=== PATIENT | male | born 1970 | race Two or more races ===

== ENCOUNTER 2024-04-03 10:32 | Inpatient (IN) | payer MEDICAID ==
[~2024-04-03] VITALS: Ht 172.7 cm; Wt 79.8 kg
--- NOTE | 2024-04-03 10:52 | ED.PDOC ---
History of Present Illness HPI Comments 54 y.o male with PMH of ETOH abuse, presents to the ED for a chief complaint of generalized malaise associated with right sided abdominal/flank pain, scleral icterus and dry skin that started 15 days ago. Patient reports heavy drinking for the past 25 years, last drink was one week ago. Patient took 2x 325mg T ylenol 2 days ago for pain but had no relief. Patient denies any medical history and is not on any medication at this time. No allergies reported. Previous history of methamphetamine use, last use was 3 years ago. Time Seen by MD: 10:36 Reviewed Notes: Nurses Notes, Medications, Allergies Information Source: Patient Mode of Arrival: Ambulatory Severity: Moderate Timing: Days (15) Duration: Since onset Past Medical History PAST MEDICAL HISTORY: Denies Surgical History: Denies all surgeries Family History Family History: Reviewed,noncontributory to illness Social History Smoker: Non-Smoker Alcohol: Heavy Drugs: Denies Drug Use Lives In: Home Constitutional: reports: weakness; denies: chills, diaphoresis, fatigue, fever, malaise, sweats, others EENTM: denies: blurred vision, double vision, ear bleeding, ear discharge, ear drainage, ear pain, ear ringing, eye pain, eye redness, hearing loss, mouth pain, mouth swelling, nasal discharge, nose bleeding, nose congestion, nose pain, photophobia, tearing, throat pain, throat swelling, voice changes, others Respiratory: denies: cough, hemoptysis, orthopnea, SOB at rest, shortness of breath, SOB with excertion, stridor, wheezing, others Cardiovascular: denies: chest pain, dizzy spells, diaphoresis, Dyspnea on exertion, edema, irregular heart beat, left arm pain, lightheadedness, palpitations, PND, syncope, others Gastrointestinal: reports: abdominal pain; denies: abdomen distended, blood streaked bowels, constipated, diarrhea, dysphagia, difficulty swallowing, hematemesis, melena, nausea, poor appetite, poor fluid intake, rectal bleeding, rectal pain, vomiting, others Genitourinary: reports: flank pain; denies: burning, dysuria, frequency, hematuria, incontinence, penile discharge, penile sore, pain, testicle pain, testicle swelling, urgency, others Neurological: denies: dizziness, fainting, headache, left sided numbness, left sided weakness, numbness, paresthesia, pre-existing deficit, right sided numbness, right sided weakness, seizure, speech problems, tingling, tremors, weakness, others Integumetry: reports: change in color (jaundice ); denies: bruises, change in hair/nails, dryness, laceration, lesions, lumps, rash, wounds, others Allergic/Immunocompromised: denies: Difficulty Healing, Frequent Infections, Hives, Itching, others Hematologic/Lymphatic: denies: anemia, blood clots, easy bleeding, easy bruising, swollen glands, others Endocrine: denies: excessive hunger, excessive sweating, excessive thirst, excessive urination, flushing, intolerance to cold, intolerance to heat, unexplained weight gain, unexplained weight loss, others Psychiatric: denies: anxiety, bipolar disorder, depression, hopeless, panic disorder, schizophrenia, sleepless, suicidal, others All Other Systems: Reviewed and Negative Physical Exam General Appearance: Normal HEENT: Other (Scleritis) Neck: Full Range of Motion, Non-Tender, Normal, Normal Inspection Respiratory: Chest Non-Tender, Lungs Clear, No Accessory Muscle Use, No Respiratory Distress, Normal Breath Sounds Cardiovascular: No Edema, No JVD, No Murmur, No Gallop, Normal Peripheral Pulses, Regular Rate/Rhythm Breast Exam: Deferred Gastrointestinal: No Organomegaly, Non Tender, No Pulsatile Mass, Normal Bowel Sounds, Soft Genitalia: Deferred Pelvic: Deferred Rectal: Deferred Extremities: No calf tenderness, Normal capillary refill, Normal inspection, Normal range of motion, Non-tender, No pedal edema Musculoskeletal : Apperance: Normal Neurologic: Alert, distributor cleaner II-XII nml as Tested, No Motor Deficits, Normal Affect, Normal Mood, No Sensory Deficits Cerebellar Function: Normal Reflexes: Normal Skin: Jaundice, Other (no Spider Angioma or Caput medusae) Lymphatic: No Adenopathy Was a procedure done? Was a procedure done?: No Differential Dx Considerations may include: cirrhosis, viral hepatitis, acetaminophens toxicity, alcoholic liver injury, biliary disorders X-Ray, Labs, Meds, VS Vital Signs Date Time Temp Pulse Resp B/P (MAP) Pulse Ox O2 Delivery O2 Flow Rate FiO2 04/03/24 10:49 97.3 109 18 124/85 (98) 97 Lab Test 04/03/24 11:03 04/03/24 10:45 Range/Units White Blood Count 4.9 4.4-10.8 10^3/uL Red Blood Count 4.68 4.5-5.90 10^6/uL Hemoglobin 15.7 13.5-17.5 g/dL Hematocrit 45.9 41.0-53.0 % Mean Corpuscular Volume 98.1 80.0-100.0 fL Mean Corpuscular Hemoglobin 33.6 H 28.0-32.0 pg Mean Corpuscular Hemoglobin Concent 34.3 32.0-36.0 g/dL Red Cell Distribution Width 15.5 H 11.8-14.3 % Platelet Count 185 140-450 10^3/uL Mean Platelet Volume 9.7 6.9-10.8 fL Neutrophils (%) (Auto) 74.8 37.0-80.0 % Lymphocytes (%) (Auto) 13.8 10.0-50.0 % Monocytes (%) (Auto) 9.9 0.0-12.0 % Eosinophils (%) (Auto) 0.9 0.0-7.0 % Basophils (%) (Auto) 0.6 0.0-2.0 % Neutrophils # (Auto) 3.7 1.6-8.6 10 ^3/uL Lymphocytes # (Auto) 0.7 0.4-5.4 10 ^3/uL Monocytes # (Auto) 0.5 0-1.3 10 ^3/uL Eosinophils # (Auto) 0 0-0.8 10 ^3/uL Basophils # (Auto) 0 0-0.2 10 ^3/uL Nucleated Red Blood Cells 0.1 % Sodium Level 128 L 136-145 mmol/L Potassium Level 3.9 3.5-5.1 mmol/L Chloride Level 97 L 98-107 mmol/L Carbon Dioxide Level 22 20-31 mmol/L Anion Gap 9 5-15 Blood Urea Nitrogen 9 9-23 mg/dL Creatinine 0.70 0.700-1.30 mg/dL Glomerular Filtration Rate Calc 110 >90 mL/min BUN/Creatinine Ratio 12.9 10.0-20.0 Serum Glucose 357 H 74-106 mg/dL Calcium Level 8.9 8.7-10.4 mg/dL Total Bilirubin 12.3 H 0.2-1.0 mg/dL Aspartate Amino Transferase (AST) 1334 H 13-40 U/L Alanine Aminotransferase (ALT) 997 H 7-40 U/L Alkaline Phosphatase 188 H 46-116 U/L Total Protein 9.9 H 5.7-8.2 g/dL Albumin 3.5 3.2-4.8 g/dL Lipase 57 H 12-53 U/L Acetaminophen Level < 2.0 L 10.0-20.0 UG/ML Hepatitis A IgM Antibody Pending Hepatitis B Surface Antigen Pending Hepatitis B Core IgM Antibody Pending Hepatitis C Antibody Pending Urine Color Dark-yellow Yellow Urine Clarity Turbid H Clear Urine pH 6.0 5.0-9.0 Urine Specific [place] 1.041 H 1.001-1.035 Urine Protein 1+ H Negative Urine Ketones Negative Negative Urine Blood Negative Negative /uL Urine Nitrite Negative Negative Urine Bilirubin 2+ Negative Urine Urobilinogen 6 Negative mg/dL Urine Leukocyte Esterase Negative Negative /uL Urine RBC 2 0 - 3 /hpf Urine WBC 7 0 - 3 /hpf Urine Squamous Epithelial Cells None seen <5 /hpf Urine Bacteria None seen None Seen /hpf Urine Mucus Few None Seen Urine Glucose 4+ H Normal mg/dL [place] [id number] Ph: [phone] DIAGNOSTIC IMAGING Diagnostic Imaging Report : [id number] Signed PATIENT: NOEL RAMIREZ ACCT: [id number] UNIT: [id number] : 1970 LOC: ER ROOM / BED: / AGE / SEX: 54 / M ADM STATUS: REG ER SERVICE 1040 ORDERING PHYSICIAN: JUANIS JAFFE MD PROCEDURE(s): ABDL - ABDOMEN LIMITED REASON: JAUNDICE, RUQ PAIN ORDER NUMBER(s): [id number], ACCESSION NUMBER(s): [id number] INDICATION: JAUNDICE, RUQ PAIN TECHNIQUE: Multiple real-time sonographic images of the abdomen were obtained. COMPARISON: None FINDINGS: The liver is increased in echogenicity. The liver measures 16.7 cm. No intrahepatic biliary ductal dilatation is noted. Gallbladder is contracted. The gallbladder wall measures 0. 5 cm and is unremarkable. No gallstones or sludge is seen. The common duct is not visualized. No pericholecystic fluid is noted. There is a negative sonographic ramos's sign. The right kidney measures 10.7 cm. No hydronephrosis. The pancreas is not well visualized due to obscuration from bowel gas. The visualized portions of the IVC and aorta are grossly unremarkable. IMPRESSION: 1. Contracted gallbladder with gallbladder wall thickening which is nonspecific in the setting of underdistention. Negative sonographic ramos's sign. If there strong clinical concern for an acute process, MRI of the abdomen with MRCP, without and with intravenous contrast may be obtained. 2. Hepatic steatosis. ATED BY: JAN ABDUL MD DICTATED DATE/TIME: 04/03/24 113 SIGNED BY: JAN ABDUL MD SIGNED DATE/TIME: 04/03/241130 CC: Time of 1ST Reevaluation: 10:42 Reevaluation 1ST: Unchanged Time of 2ND Reevaluation: 15:44 Reevaluation 2ND: Unchanged Patient Education/Counseling: Diagnosis, Treatment, Prognosis Family Education/Counseling: No Family Present Additional Information Ordered Test: CBC, CMP Reviewed Result: LAB that includes: Lipase and acute hepatitis panel Interpreted results: US abdominal- Agreed with radiology- IMPRESSION: 1. Contracted gallbladder with gallbladder wall thickening which is nonspecific in the setting of underdistention. Negative sonographic ramos's sign. If there strong clinical concern for an acute process, MRI of the abdomen with MRCP, without and with intravenous contrast may be obtained. 2. Hepatic steatosis. 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 hepatitis panel is pending. pt will be admitted for further evaluation. tylenol level is absent. he has not drank in over 10 days and is not showing signs of withdrawal Departure 1 Departure Time of Disposition: 15:45 Impression: Primary Impression: Acute hepatitis Additional Impression: Alcoholism Disposition: ADMITTED INPATIENT Admit to: Med Surg Condition: Serious Critical Care Note Critical Care Time?: Yes (1 hr-critical care time only) Critical care comment: due to the likelihood of patients condition suddenly deteriorating, the care requires my highest level of attention, readiness to intervene. my critical care include assessing and reassessing of patient's condition, response to treatments, ordering the appropriate tests, reviewing the results, ordering of treatments, discussing the care with medical personnel and consultants, and formulating a treatment plan, as well a reviewing various medical records. this include at least 50% face-face interaction, and does not include any procedures Stability Stability form required: No I personally scribed for JUAINS JAFFE MD ([facility]) on 04/03/24 at 10:52. Electronically submitted by Anabelle Tolliver ([facility]). I personally scribed for JUANIS JAFFE MD ([facility]) on 04/03/24 at 12:53. Electronically submitted by Anabelle Tolliver ([facility]). JUANIS JAFFE MD Apr 03, 2024 10:52
[2024-04-03 10:59] LABS: Urine Bacteria None Seen /hpf (None Seen)
[2024-04-03 11:20] LABS: Urine Blood Negative /uL (Negative); Urine Clarity Turbid (Clear); Urine Color Dark-Yellow (Yellow); Urine Mucus FEW (None Seen); Urine Protein, UAD 1+ (Negative); Urine Specific Gravity 1.041 (1.001-1.035); Urine Urobilinogen 6 mg/dL (Negative); Urine WBC 7 /hpf (0 - 3)
--- NOTE | 2024-04-03 11:33 | DVH ---
INDICATION: JAUNDICE, RUQ PAIN TECHNIQUE: Multiple real-time sonographic images of the abdomen were obtained. COMPARISON: None FINDINGS: The liver is increased in echogenicity. The liver measures 16.7 cm. No intrahepatic biliar y ductal dilatation is noted. Gallbladder is contracted. The gallbladder wall measures 0. 5 cm and is unremarkable. No gallstones or sludge is seen. The common duct is not visualized. No pericholecystic fluid is noted. There is a negative sonographic ramos's sign. The right kidney measures 10.7 cm. No hydronephrosis. The pancreas is not well visualized due to obscuration from bowel gas. The visualized portions of the IVC and aorta are grossly unremarkable. IMPRESSION: 1. Contracted gallbladder with gallbladder wall thickening which is nonspecific in the setting of und erdistention. Negative sonographic ramos's sign. If there strong clinical concern for an acute proce ss, MRI of the abdomen with MRCP, without and with intravenous contrast may be obtained. 2. Hepatic steatosis.
[2024-04-03 11:37] LABS: Basophils # (auto) 0 10 ^3/uL (0-0.2); Basophils % (auto) 0.6 % (0.0-2.0); Eosinophils # (auto) 0 10 ^3/uL (0-0.8); Eosinophils % (auto) 0.9 % (0.0-7.0); Hematocrit 45.9 % (41.0-53.0); Hemoglobin 15.7 g/dL (13.5-17.5); Lymphocytes # (auto) 0.7 10 ^3/uL (0.4-5.4); Lymphocytes % (auto) 13.8 % (10.0-50.0); Mean Corpuscular Hemoglobin 33.6 pg (28.0-32.0); Mean Corpuscular Hgb Conc. 34.3 g/dL (32.0-36.0); Mean Corpuscular Volume 98.1 fL (80.0-100.0); Monocytes # (auto) 0.5 10 ^3/uL (0-1.3); Monocytes % (auto) 9.9 % (0.0-12.0); Neutrophils # (auto) 3.7 10 ^3/uL (1.6-8.6); Neutrophils % (auto) 74.8 % (37.0-80.0); Nucleated Red Blood Cells % 0.1 %; Platelet Count (auto) 185 10^3/uL (140-450); Red Blood Cells 4.68 10^6/uL (4.5-5.90); Red Cell Distribution Width 15.5 % (11.8-14.3); White Blood Cell 4.9 10^3/uL (4.4-10.8)
[2024-04-03 11:56] LABS: Albumin 3.5 g/dL (3.2-4.8); Anion Gap 9 (5-15); Blood Urea Nitrogen 9 mg/dL (9-23); Calcium 8.9 mg/dL (8.7-10.4); Carbon Dioxide 22 mmol/L (20-31); Potassium 3.9 mmol/L (3.5-5.1)
[2024-04-03 12:02] LABS: BUN/Creatinine Ratio 12.9 (10.0-20.0)
[2024-04-03 12:14] LABS: Alanine Aminotransferase 997 U/L (7-40); Alkaline Phosphatase 188 U/L (46-116); Aspartate Aminotransferase 1334 U/L (13-40); Bilirubin, Total 12.3 mg/dL (0.2-1.0); Chloride 97 mmol/L (98-107); Glucose 357 mg/dL (74-106); Lipase 57 U/L (12-53); Sodium 128 mmol/L (136-145); Total Protein 9.9 g/dL (5.7-8.2)
[2024-04-03] MEDS ORDERED: MORPHINE SULFATE INJ 2 MG/ml SYRG IV PRN (16:30)
[2024-04-03] MEDS ORDERED: DEXTROSE (50%) 50ML SYRG IV PRN ×2 (16:30→23:45)
[2024-04-03] MEDS: ACCU-CHEK COMFORT CURVE STRIP VI SCH (17:00)
[2024-04-03] MEDS: InsuLIN REG 1unit/0.01ml Soln (100units/ml) SC SCH (17:00)
--- NOTE | 2024-04-03 17:17 | DVHHP2 ---
History of Present Illness History of Present Illness 54 y.o male with PMH of ETOH abuse, meth abuse, presents to the ED for a chief complaint of generalized malaise. Patient endorsed right sided abdominal/flank pain to ED physician. He endorses scleral icterus and dry skin that started 15 days ago. Patient reports heavy drinking for the past 25 years, last drink was one week ago, he drinks 12 pack beer daily and has no history of alcohol withdrawals. Patient took 625 Tylenol for 2 days few days ago as a sleep aid but had no relief. Denies any limb weakness, vision changes. Denies any travel or any recent bug bites. Denies fevers/chills, nausea/vomiting, diarrhea. Denies cough, upper respiratory symptoms, urinary symptoms. Denies any rash. Patient denies any medical history and is not on any medication at this time. No al lergies reported. No IV drug use, current alcohol abuse, history of meth abuse. Review of Systems Review of Systems As in HPI Allergies: Coded Allergies: NO KNOWN ALLERGIES (Unverified , 04/03/24) Medications Current Medications Medications Dose Ordered Sig/Zbigniew Route Start Time Stop Time Status Last Admin Dose Admin Diagnostic Test (Pha) 1 strip ACHS 04/03/24 17:00 UNV Insulin Human Regular ACHS SC 04/03/24 17:00 UNV Dextrose 50 ml UD PRN IV 04/03/24 16:30 UNV Enoxaparin Sodium 40 mg DAILY SC 04/04/24 10:00 UNV Morphine Sulfate 2 mg Q4HPRN PRN IV 04/03/24 16:30 UNV Exam Vital Signs Vital Signs Date Time Temp Pulse Resp B/P (MAP) Pulse Ox O2 Delivery O2 Flow Rate FiO2 04/03/24 10:49 97.3 109 18 124/85 (98) 97 Exam GEN: NAD. Jaundiced HEENT: NC/AT; , find mucous membranes, scleral icterus, sublingual icterus, jaundice skin CV: RRR, no m/r/g. LUNGS: Poor air movement in all lung hodges. ABD: Soft, NT/ND, NBS, no masses or organomegaly. No abdominal tenderness, Gibbs sign negative, abdomen nonacute EXT: skin Warm, well perfused. no rashes. Skin is jaundiced, no spider angiomas, NEURO: Ambulating with no limitations. No focal deficits. Labs/Xrays Labs Test 04/03/24 11:03 04/03/24 10:45 Range/Units White Blood Count 4.9 4.4-10.8 10^3/uL Red Blood Count 4.68 4.5-5.90 10^6/uL Hemoglobin 15.7 13.5-17.5 g/dL Hematocrit 45.9 41.0-53.0 % Mean Corpuscular Volume 98.1 80.0-100.0 fL Mean Corpuscular Hemoglobin 33.6 H 28.0-32.0 pg Mean Corpuscular Hemoglobin Concent 34.3 32.0-36.0 g/dL Red Cell Distribution Width 15.5 H 11.8-14.3 % Platelet Count 185 140-450 10^3/uL Mean Platelet Volume 9.7 6.9-10.8 fL Neutrophils (%) (Auto) 74.8 37.0-80.0 % Lymphocytes (%) (Auto) 13.8 10.0-50.0 % Monocytes (%) (Auto) 9.9 0.0-12.0 % Eosinophils (%) (Auto) 0.9 0.0-7.0 % Basophils (%) (Auto) 0.6 0.0-2.0 % Neutrophils # (Auto) 3.7 1.6-8.6 10 ^3/uL Lymphocytes # (Auto) 0.7 0.4-5.4 10 ^3/uL Monocytes # (Auto) 0.5 0-1.3 10 ^3/uL Eosinophils # (Auto) 0 0-0.8 10 ^3/uL Basophils # (Auto) 0 0-0.2 10 ^3/uL Nucleated Red Blood Cells 0.1 % Sodium Level 128 L 136-145 mmol/L Potassium Level 3.9 3.5-5.1 mmol/L Chloride Level 97 L 98-107 mmol/L Carbon Dioxide Level 22 20-31 mmol/L Anion Gap 9 5-15 Blood Urea Nitrogen 9 9-23 mg/dL Creatinine 0.70 0.700-1.30 mg/dL Glomerular Filtration Rate Calc 110 >90 mL/min BUN/Creatinine Ratio 12.9 10.0-20.0 Serum Glucose 357 H 74-106 mg/dL Calcium Level 8.9 8.7-10.4 mg/dL Total Bilirubin 12.3 H 0.2-1.0 mg/dL Aspartate Amino Transferase (AST) 1334 H 13-40 U/L Alanine Aminotransferase (ALT) 997 H 7-40 U/L Alkaline Phosphatase 188 H 46-116 U/L Lactate Dehydrogenase 471 H 120-246 U/L Total Protein 9.9 H 5.7-8.2 g/dL Albumin 3.5 3.2-4.8 g/dL Lipase 57 H 12-53 U/L Acetaminophen Level < 2.0 L 10.0-20.0 UG/ML Urine Color Dark-yellow Yellow Urine Clarity Turbid H Clear Urine pH 6.0 5.0-9.0 Urine Specific [place] 1.041 H 1.001-1.035 Urine Protein 1+ H Negative Urine Ketones Negative Negative Urine Blood Negative Negative /uL Urine Nitrite Negative Negative Urine Bilirubin 2+ Negative Urine Urobilinogen 6 Negative mg/dL Urine Leukocyte Esterase Negative Negative /uL Urine RBC 2 0 - 3 /hpf Urine WBC 7 0 - 3 /hpf Urine Squamous Epithelial Cells None seen <5 /hpf Urine Bacteria None seen None Seen /hpf Urine Mucus Few None Seen Urine Glucose 4+ H Normal mg/dL Assessment/Plan Assessment/Plan #Transaminitis #ALP elevated #Hyperbilirubinemia #Hepatomegaly/hepatic steatosis #History of alcohol abuse - patient here for weakness. Has history of alcohol abuse drinking 12 pack be ers daily. - patient has AST more than ALT, elevations in low 1000s, ALP elevated. - lipase elevated 57, Tylenol level low. - MELD-Na 27, , ammonia wnl, - blod etoh neg - low conern for acute etoh liver failure (no need prednisolone) - Dbili 8 (of), LDH high- could be hemolysis (pending hapto) - CT abd without ascites , no Hepatosplenomegaly, no acute process - RUQ ultrasound shows hepatomegaly and hepatic steatosis. - if LFT keep rising (with normal Hep panel) and given etoh wnl - may need MRCP with GI consult . - pending hepatitis panel, - need smear pend. - avoid Tylenol for pain control - low-salt diet #Protein gap - no hypercalcemia noted, renal function normal,-low concern for myeloma but if persists we will need workup for paraproteinemia diseases - monitor protein gap #Hyponatremia #Hyperglycemia - gap is normal, hyponatremia likely from hyperglycemia.. DKA ruled out. - giving fluids - start of moderate q4h scale #Intravascular volume depletion Specific gravity 1.041. Blood glucose 357. She was likely suffering from osmotic diuresis. -IV fluid hydration aggressive. Diet low-salt DVT prophylaxis Lovenox GI prophylaxis patient tolerating diet Med tele Plan discussed with: Patient My Orders Orders - KESHIA VAZQUEZ MD Procedure Category Date Status Time Blood Alcohol LAB 04/03/24 Logged 16:11 Gamma Glutamyl LAB 04/03/24 In Process Transpeptidase 16:16 Bilirubin, Direct LAB 04/03/24 In Process 16:16 Haptoglobin LAB 04/03/24 Logged 16:16 Hemoglobin A1c LAB 04/03/24 In Process 16:20 Glucose Blood PHA 04/03/24 Logged (Accu-Chek Comfort 17:00 Insulin R (Human) PHA 04/03/24 Logged (Insulin R) 17:00 Dextrose 50% Syringe PHA 04/03/24 Logged 16:30 Admit ADMIT 04/03/24 Transmitted 16:23 Code Status CODE 04/03/24 Transmitted 16:23 2 Gm Sodium Diet DIET 04/03/24 Transmitted Dinner Enoxaparin Sodium PHA 04/04/24 Logged (Lovenox) 10:00 Complete Blood Count LAB 04/04/24 Verified 04:00 Comprehensive LAB 04/04/24 Verified Metabolic Panel 04:00 Bedrest With Bathroom AARTI 04/03/24 In Process Privileg 16:23 Morphine Sulfate PHA 04/03/24 Logged Injection 16:30 Ammonia LAB 04/03/24 Logged 16:23 Insulin Lispro PHA 04/03/24 Logged (Human) (Humalog) 16:30 Lactated Ringer's PHA 04/03/24 Logged 16:30 Chest Portable XY 04/03/24 Transmitted 16:51 Ct Ab Pel Wo Con-No CT 04/03/24 Transmitted Oral Or Iv 16:51 Drug Screen LAB 04/03/24 Verified 16:56 Date of Service: Apr 03, 2024 Billing Provider: KESHIA VAZQUEZ MD Common Visit Codes: [id number] INP/OBS CARE (HIGH) KESHIA VAZQUEZ MD Apr 03, 2024 17:17
--- NOTE | 2024-04-03 17:26 | DVH ---
EXAMINATION: AP portable chest radiograph CLINICAL HISTORY: distant breath sounds COMPARISON: None TECHNIQUE: Single view of the chest FINDINGS: Negative AP chest. No dominant consolidations. The costophrenic angles are clear. No sizable pleural effusions or pneumo thorax identified. The cardiomediastinal silhouette appears within normal limits given technique. IMPRESSION: 1. Negative AP chest.
--- NOTE | 2024-04-03 17:38 | DVH ---
Exam: CT CT AB PEL WO CON-NO ORAL OR IV History: liver failure. check for bile duct, ascites, varices. Comparison Study: None available at time of dictation. TECHNIQUE: Multidetector CT of the abdomen was performed from lung bases to pubic symphysis. Imaging was performed without IV contrast. Axial, coronal and sagittal multiplanar reformats were obtained fr om the axial data set by the technologist. Radiation Dose Information: CT Dose: CTDI volume is 18.64 mGy. Dose-length product is 967.03 mGy*cm Varices are best evaluated with IV contrast. FINDINGS: Evaluation of solid organs is limited due to lack of intravenous contrast use. Findings: Lung Bases: No acute or significant lung base finding. Normal heart size. No pleural or pericardial effusion. Liver: The liver is normal in size. No focal lesions. Gallbladder and Biliary Tree: Gallbladder contracted with mild gallbladder wall thickening and perich olecystic fluid if acute cholecystitis is of clinical concern recommend gallbladder ultrasound. Spleen: Unremarkable Pancreas: The pancreas is grossly normal in appearance. Adrenal Glands: Unremarkable Kidneys: Kidneys are grossly normal without calculi or hydronephrosis. Bladder: Grossly unremarkable for degree of distention. Bowel: The stomach is grossly normal in appearance. Small bowel and colon are normal in caliber and d istribution. The appendix is not visualized; however, no secondary findings of acute appendicitis id entified. Ascites: Absent Lymphadenopathy: No mesenteric, retroperitoneal or periportal lymphadenopathy. Abdominal Wall and Mesentery: Unremarkable. Vasculature: The visualized abdominal aorta is normal in size and caliber. Evaluation of abdominal a nd pelvic vessels is limited due to lack of intravenous contrast. Pelvic Organs: Unremarkable Musculoskeletal: No aggressive focal bony lesions, acute fractures or dislocation. Soft tissues: Unremarkable IMPRESSION: 1. No findings to suggest dilated intrahepatic ducts. 2. No gross findings of varices however IV contrast makes varices evaluation more accurate. 3. Gallbladder is contracted with mildly thickened wall and pericholecystic fluid. If of clinical con cern recommend gallbladder ultrasound. 4. No findings of bowel obstruction. 5. Stool noted throughout the colon. Radiation optimization: All CT scans at this facility use at least one of these dose optimization te chniques: automated exposure control mA and/or kV adjustment per patient size (includes targeted exa ms where dose is matched to clinical indication) or iterative reconstruction.
[2024-04-03 19:21] LABS: INR 1.59 (0.9-1.15); Prothrombin Time 16.3 sec (9.3-11.8)
[2024-04-03 20:33] VITALS: PULSE 91; RESP 18; O2SAT 96
[2024-04-03] MEDS: INSULIN LISPRO (HUMAN) 100 UNITS/ML ML SC ONE (21:36)
[2024-04-03] MEDS: LACTATED RINGER'S 1,000 ML IV ONE (21:40)
[2024-04-03 23:04] VITALS: PULSE 90; RESP 16; O2SAT 97
[2024-04-04] VITALS (9 sets, daily range): BP systolic 111–132; BP diastolic 77–87; PULSE 71–88; RESP 16–22; TEMP 98.1–98.9; O2SAT 96–100
[2024-04-04] MEDS: INSULIN LISPRO (HUMAN) 100 UNITS/ML ML SC ONE
[2024-04-04] MEDS: InsuLIN REG 1unit/0.01ml Soln (100units/ml) SC SCH (00:55)
[2024-04-04] MEDS: ACCU-CHEK COMFORT CURVE STRIP VI SCH (00:55)
[2024-04-04] MEDS: LACTATED RINGER'S 1,000 ML IV ONE (00:56)
[2024-04-04 06:09] LABS: Basophils # (auto) 0 10 ^3/uL (0-0.2); Basophils % (auto) 0.6 % (0.0-2.0); Eosinophils # (auto) 0 10 ^3/uL (0-0.8); Hematocrit 40.2 % (41.0-53.0); Hemoglobin 13.9 g/dL (13.5-17.5); Lymphocytes # (auto) 0.7 10 ^3/uL (0.4-5.4); Lymphocytes % (auto) 16.7 % (10.0-50.0); Mean Corpuscular Hemoglobin 33.7 pg (28.0-32.0); Mean Corpuscular Hgb Conc. 34.5 g/dL (32.0-36.0); Mean Corpuscular Volume 97.6 fL (80.0-100.0); Monocytes # (auto) 0.5 10 ^3/uL (0-1.3); Monocytes % (auto) 12.7 % (0.0-12.0); Neutrophils # (auto) 2.8 10 ^3/uL (1.6-8.6); Nucleated Red Blood Cells % 0.2 %; Platelet Count (auto) 157 10^3/uL (140-450); Red Blood Cells 4.12 10^6/uL (4.5-5.90); Red Cell Distribution Width 15.4 % (11.8-14.3); White Blood Cell 4.1 10^3/uL (4.4-10.8)
[2024-04-04 06:31] LABS: Anion Gap 8 (5-15); BUN/Creatinine Ratio 13.3 (10.0-20.0); Carbon Dioxide 22 mmol/L (20-31); Chloride 103 mmol/L (98-107); Potassium 3.6 mmol/L (3.5-5.1); Total Protein 8.1 g/dL (5.7-8.2)
[2024-04-04 06:38] LABS: Alanine Aminotransferase 908 U/L (7-40); Albumin 2.8 g/dL (3.2-4.8); Alkaline Phosphatase 169 U/L (46-116); Bilirubin, Total 9.2 mg/dL (0.2-1.0); Blood Urea Nitrogen 8 mg/dL (9-23); Calcium 8.5 mg/dL (8.7-10.4); Glucose 153 mg/dL (74-106); Sodium 133 mmol/L (136-145)
[2024-04-04 06:43] LABS: Aspartate Aminotransferase 1196 U/L (13-40)
[2024-04-04 08:25] LABS: Wright Stain Ready for Review
[2024-04-04] MEDS: ENOXAPARIN SOD 40 MG/0.4 ML SYRINGE SC SCH (10:28)
[2024-04-04 16:13] LABS: Cannabinoid Screen, Urine Neg (NEGATIVE)
[2024-04-04 16:14] LABS: Opiate Scree,Urine Neg (NEGATIVE)
[2024-04-04 16:15] LABS: Amphetamine Screen, Urine Neg (NEGATIVE); Barbiturate Scree,Urine Neg (NEGATIVE); Benzodiazephine Screen, Urine Neg (NEGATIVE); Cocaine Screen, Urine Neg (NEGATIVE); Phencyclidine Screen, Urine Neg (NEGATIVE)
--- NOTE | 2024-04-04 17:14 | DVHPN2 ---
Subjective FEELS BETTER. NO ABDOMINAL PAIN Reviewed: Care Plan, H&P, Labs, Medications, Previous Orders, Radiology Changes from previous H/P or p: No Changes Objective Vitals Vital Signs Date Time Temp Pulse Resp B/P (MAP) Pulse Ox O2 Delivery O2 Flow Rate FiO2 04/04/24 13:00 98.1 82 16 119/78 (92) 96 98.1 04/04/24 08:07 Room Air* 0 21 Intake/Output Intake and Output 04/04/24 07:00 Intake Total 1750 ml Output Total 0 ml Balance 1750 ml Intake Oral 0 ml IV Total 1750 ml Output Urine Total 0 ml General Appearance: Alert, Oriented X3, Cooperative, No acute distress HEENT: Atraumatic Lungs: Clear to auscultation Cardiovascular: Regular rate, Other (Soft heart murmur in the left lower sternal border and apex) Abdomen: Normal bowel sounds, Soft, No tenderness Medications Current Medications Medications Dose Ordered Sig/Zbigniew Route Start Time Stop Time Status Last Admin Dose Admin Enoxaparin Sodium 40 mg DAILY SC 04/04/24 10:00 04/04/24 10:28 40 MG Morphine Sulfate 2 mg Q4HPRN PRN IV 04/03/24 16:30 Diagnostic Test (Pha) 1 strip IQ4HR 04/04/24 00:00 04/04/24 15:52 1 STRIP Insulin Human Regular IQ4HR SC 04/04/24 00:00 04/04/24 15:55 6 UNITS Dextrose 50 ml UD PRN IV 04/03/24 23:45 Laboratory Results Laboratory Tests 04/04/24 05:31 Chemistry Test 04/04/24 05:31 Albumin 2.8 g/dL (3.2-4.8) L Calcium Level 8.5 mg/dL (8.7-10.4) L Total Protein 8.1 g/dL (5.7-8.2) Coagulation Test 04/03/24 18:23 Prothrombin Time 16.3 sec (9.3-11.8) H Prothrombin Time INR 1.59 (0.9-1.15) H LFT Test 04/04/24 05:31 Alanine Aminotransferase (ALT) 908 U/L (7-40) H Alkaline Phosphatase 169 U/L (46-116) H Aspartate Amino Transferase (AST) 1196 U/L (13-40) H Total Bilirubin 9.2 mg/dL (0.2-1.0) H Urinalysis Test 04/03/24 10:45 Urine Color Dark-yellow (Yellow) Urine Clarity Turbid (Clear) H Urine pH 6.0 (5.0-9.0) Urine Specific [place] 1.041 (1.001-1.035) Urine Protein 1+ (Negative) H Urine Ketones Negative (Negative) Urine Blood Negative /uL (Negative) Urine Nitrite Negative (Negative) Urine Bilirubin 2+ (Negative) Urine Urobilinogen 6 mg/dL (Negative) Urine Leukocyte Esterase Negative /uL (Negative) Urine RBC 2 /hpf (0 - 3) Urine WBC 7 /hpf (0 - 3) Urine Squamous Epithelial Cells None seen /hpf (<5) Urine Bacteria None seen /hpf (None Seen) Urine Mucus Few (None Seen) Urine Glucose 4+ mg/dL (Normal) H Assessment/Plan Assessment/Plan Alcoholic liver disease Coagulopathy Dyslipidemia New diabetes with A1c 11 Hyponatremia Leukopenia Plan: Continue current plan of care. Repeat INR. Check CPK. CBC and CMP. We will order MRCP. Further plan per orders Plan discussed with: Patient, Spouse My Orders Orders - KATHY ALLEN MD Procedure Category Date Status Time Mrcp Mri MRI 04/04/24 Logged 14:39 Complete Blood Count LAB 04/05/24 Verified 06:00 Comprehensive LAB 04/05/24 Verified Metabolic Panel 06:00 Creatine Kinase LAB 04/05/24 Verified 06:00 Prothrombin Time W/ LAB 04/05/24 Verified INR 06:00 Date of Service: Apr 04, 2024 Billing Provider: KATHY ALLEN MD Common Visit Codes: [id number] INP/OBS CARE(HIGH) KATHY ALLEN MD Apr 04, 2024 17:14
[2024-04-05] VITALS (7 sets, daily range): BP systolic 116–132; BP diastolic 65–84; PULSE 68–98; RESP 17–20; TEMP 97.9–98.5; O2SAT 94–100
[2024-04-05 06:58] LABS: Basophils # (auto) 0 10 ^3/uL (0-0.2); Basophils % (auto) 0.6 % (0.0-2.0); Eosinophils # (auto) 0.1 10 ^3/uL (0-0.8); Hemoglobin 14.7 g/dL (13.5-17.5); Lymphocytes # (auto) 1.2 10 ^3/uL (0.4-5.4); Monocytes # (auto) 0.6 10 ^3/uL (0-1.3); Nucleated Red Blood Cells % 0.2 %; Red Cell Distribution Width 15.6 % (11.8-14.3)
[2024-04-05 07:01] LABS: Eosinophils % (auto) 1.1 % (0.0-7.0); Hematocrit 41.3 % (41.0-53.0); Lymphocytes % (auto) 22.5 % (10.0-50.0); Mean Corpuscular Hemoglobin 34.4 pg (28.0-32.0); Mean Corpuscular Hgb Conc. 35.5 g/dL (32.0-36.0); Monocytes % (auto) 11.8 % (0.0-12.0); Neutrophils # (auto) 3.5 10 ^3/uL (1.6-8.6); Platelet Count (auto) 185 10^3/uL (140-450); Red Blood Cells 4.26 10^6/uL (4.5-5.90); White Blood Cell 5.5 10^3/uL (4.4-10.8)
[2024-04-05 07:05] LABS: INR 1.63 (0.9-1.15); Prothrombin Time 16.7 sec (9.3-11.8)
[2024-04-05 08:11] LABS: Anion Gap 7 (5-15)
[2024-04-05 08:16] LABS: BUN/Creatinine Ratio 11.3 (10.0-20.0)
[2024-04-05 08:22] LABS: Alanine Aminotransferase 1164 U/L (7-40); Alkaline Phosphatase 161 U/L (46-116); Aspartate Aminotransferase 1473 U/L (13-40); Bilirubin, Total 9.7 mg/dL (0.2-1.0); Blood Urea Nitrogen 7 mg/dL (9-23); Calcium 8.6 mg/dL (8.7-10.4); Carbon Dioxide 22 mmol/L (20-31); Chloride 103 mmol/L (98-107); Glucose 125 mg/dL (74-106); Potassium 3.7 mmol/L (3.5-5.1); Sodium 132 mmol/L (136-145)
[2024-04-05 08:23] LABS: Albumin 2.9 g/dL (3.2-4.8); Creatine Kinase IFCC 31 U/L (46-171); Total Protein 8.9 g/dL (5.7-8.2)
--- NOTE | 2024-04-05 10:59 | DVH ---
CLINICAL INFORMATION: Cholecystectomy. TECHNIQUE: Multisequence multiplanar MRI images of the abdomen were obtained without IV contrast. Mark storey T2-weighted MRCP images were obtained. 3D MRCP images were created. COMPARISON: CT dated 04/03/2024. Ultrasound dated 04/03/2024. FINDINGS: No gallstones visualized in the gallbladder. Trace pericholecystic fluid. No biliary ducta l dilatation. Common bile duct measures up to 4 mm in diameter, within normal limits. No filling defe ct or stricture identified in the common bile duct on MRCP. Pancreatic duct is unremarkable. The live r, spleen, pancreas, and adrenal glands appear unremarkable in their limited noncontrast enhanced giovanni earance. Small T2 hyperintense lesions in the lower pole of the left kidney , likely cysts. Possible tiny cyst in the inferior pole of the right kidney . No abdominal aortic aneurysm. No other significa nt abnormality identified. IMPRESSION: 1. No biliary ductal dilatation. No evidence of common bile duct obstruction. 2. Nonspecific trace pericholecystic fluid. No gallstones. Correlate with clinical findings. 3. Additional findings as described above.
[2024-04-05] MEDS: SODIUM CHLORIDE 0.9% 1,000 ML IV SCH (12:15)
--- NOTE | 2024-04-05 17:12 | DVHPN2 ---
Subjective FEELS BETTER. NO ABDOMINAL PAIN Reviewed: Care Plan, H&P, Labs, Medications, Previous Orders, Radiology Changes from previous H/P or p: No Changes Objective Vitals Vital Signs Date Time Temp Pulse Resp B/P (MAP) Pulse Ox O2 Delivery O2 Flow Rate FiO2 04/05/24 13:00 98.5 91 17 132/81 (98) 97 98.5 04/05/24 08:06 Room Air* 0 21 Intake/Output Intake and Output 04/05/24 07:00 Intake Total 2450 ml Output Total 450 ml Balance 2000 ml Intake Oral 2450 ml Output Urine Total 450 ml # Voids 4 # Bowel Movements 1 General Appearance: Alert, Oriented X3, Cooperative, No acute distress HEENT: Atraumatic Lungs: Clear to auscultation Cardiovascular: Regular rate, Other (Soft murmur in the left lower sternal border and apex) Abdomen: Normal bowel sounds, Soft, No tenderness Medications Current Medications Medications Dose Ordered Sig/Zbigniew Route Start Time Stop Time Status Last Admin Dose Admin Morphine Sulfate 2 mg Q4HPRN PRN IV 04/03/24 16:30 Diagnostic Test (Pha) 1 strip IQ4HR 04/04/24 00:00 04/05/24 15:51 1 STRIP Insulin Human Regular IQ4HR SC 04/04/24 00:00 04/05/24 15:52 9 UNITS Dextrose 50 ml UD PRN IV 04/03/24 23:45 Sodium Chloride 1,000 ml @ 75 mls/hr [id number] IV 04/05/24 12:15 04/05/24 12:15 75 MLS/HR Laboratory Results Laboratory Tests 04/05/24 06:12 Chemistry Test 04/05/24 06:12 Albumin 2.9 g/dL (3.2-4.8) L Calcium Level 8.6 mg/dL (8.7-10.4) L Total Protein 8.9 g/dL (5.7-8.2) H Coagulation Test 04/05/24 06:12 Prothrombin Time 16.7 sec (9.3-11.8) H Prothrombin Time INR 1.63 (0.9-1.15) H LFT Test 04/05/24 06:12 Alanine Aminotransferase (ALT) 1164 U/L (7-40) H Alkaline Phosphatase 161 U/L (46-116) H Aspartate Amino Transferase (AST) 1473 U/L (13-40) H Total Bilirubin 9.7 mg/dL (0.2-1.0) H Urinalysis Test 04/03/24 10:45 Urine Color Dark-yellow (Yellow) Urine Clarity Turbid (Clear) H Urine pH 6.0 (5.0-9.0) Urine Specific [place] 1.041 (1.001-1.035) Urine Protein 1+ (Negative) H Urine Ketones Negative (Negative) Urine Blood Negative /uL (Negative) Urine Nitrite Negative (Negative) Urine Bilirubin 2+ (Negative) Urine Urobilinogen 6 mg/dL (Negative) Urine Leukocyte Esterase Negative /uL (Negative) Urine RBC 2 /hpf (0 - 3) Urine WBC 7 /hpf (0 - 3) Urine Squamous Epithelial Cells None seen /hpf (<5) Urine Bacteria None seen /hpf (None Seen) Urine Mucus Few (None Seen) Urine Glucose 4+ mg/dL (Normal) H Assessment/Plan Assessment/Plan Worsening liver function tests Alcoholic liver disease Coagulopathy Dyslipidemia New diabetes with A1c 11 Hyponatremia Leukopenia Heart murmur of unclear etiology at this point Plan: Echocardiogram. Normal saline. Repeat liver function tests. Further plan per orders Plan discussed with: Patient My Orders Orders - KATHY ALLEN MD Procedure Category Date Status Time Sodium Chloride 0.9% PHA 04/05/24 In Process 12:15 Date of Service: Apr 05, 2024 Billing Provider: KATHY ALLEN MD Common Visit Codes: [id number] INP/OBS CARE(HIGH) KATHY ALLEN MD Apr 05, 2024 17:12
[2024-04-06] VITALS (7 sets, daily range): BP systolic 119–128; BP diastolic 77–87; PULSE 81–96; RESP 18–20; TEMP 98.1–98.9; O2SAT 97–99
[2024-04-06 07:28] LABS: Anion Gap 7 (5-15)
[2024-04-06 07:33] LABS: BUN/Creatinine Ratio 11.3 (10.0-20.0)
[2024-04-06 07:36] LABS: Sodium 133 mmol/L (136-145)
[2024-04-06 07:37] LABS: Alanine Aminotransferase 998 U/L (7-40); Albumin 2.7 g/dL (3.2-4.8); Alkaline Phosphatase 163 U/L (46-116); Aspartate Aminotransferase 1350 U/L (13-40); Blood Urea Nitrogen 7 mg/dL (9-23); Calcium 8.4 mg/dL (8.7-10.4); Carbon Dioxide 21 mmol/L (20-31); Chloride 105 mmol/L (98-107); Glucose 122 mg/dL (74-106); Potassium 3.8 mmol/L (3.5-5.1); Total Protein 8.5 g/dL (5.7-8.2)
[2024-04-06 08:19] LABS: Erythrocyte Sedimentation Rate 44 mm/hr (0-20)
--- NOTE | 2024-04-06 10:17 | DVHPN2 ---
Subjective update - 04/06--patient is feeling improved, much better. Weakness is resolved, he was ambulating, he is tolerating p.o. the symptoms were likely 2/2 hyperglycemia. etoh neg on admit, MRCP neg. pending echo, hepatits panel and GI eval. 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 likely dc today versus tomorrow pending GI eval which likely just needs outpatient follow-up. needs to stop further etoh. no acute etoh intox, hence this is likely not acute etoh DETENTION (ie dont need prednisolone). Reviewed: Care Plan, H&P, Labs, Medications, Previous Orders, Radiology Changes from previous H/P or p: No Changes General: Per HPI Objective Vitals Vital Signs Date Time Temp Pulse Resp B/P (MAP) Pulse Ox O2 Delivery O2 Flow Rate FiO2 04/06/24 08:12 Room Air* 0 21 04/06/24 05:00 98.1 84 20 123/84 (97) 98 98.1 Intake/Output Intake and Output 04/06/24 07:00 Intake Total 3010 ml Balance 3010 ml Intake Oral 2560 ml IV Total 450 ml # Voids 8 # Bowel Movements 3 Exam GEN: NAD. Jaundiced HEENT: NC/AT; ,moist mucous membranes, scleral icterus, sublingual icterus, jaundice skin CV: RRR, no m/r/g. LUNGS: Poor air movement in all lung hodges. ABD: Soft, NT/ND, NBS, no masses or organomegaly. No abdominal tenderness, Gibbs sign negative, abdomen nonacute EXT: skin Warm, well perfused. no rashes. Skin is jaundiced, no spider angiomas, NEURO: Ambulating with no limitations. No focal deficits. General Appearance: Alert, Oriented X3, Cooperative, No acute distress HEENT: Atraumatic Lungs: Clear to auscultation Cardiovascular: Regular rate, Other (Soft heart murmur in the left lower sternal border and apex) Abdomen: Normal bowel sounds, Soft, No tenderness Medications Current Medications Medications Dose Ordered Sig/Zbigniew Route Start Time Stop Time Status Last Admin Dose Admin Morphine Sulfate 2 mg Q4HPRN PRN IV 04/03/24 16:30 Diagnostic Test (Pha) 1 strip IQ4HR 04/04/24 00:00 04/06/24 07:42 1 STRIP Insulin Human Regular IQ4HR SC 04/04/24 00:00 04/06/24 07:48 2 UNITS Dextrose 50 ml UD PRN IV 04/03/24 23:45 Sodium Chloride 1,000 ml @ 75 mls/hr [id number] IV 04/05/24 12:15 04/06/24 02:15 75 MLS/HR Laboratory Results Laboratory Tests 04/05/24 06:12 04/06/24 06:14 Chemistry Test 04/06/24 06:14 Albumin 2.7 g/dL (3.2-4.8) L Calcium Level 8.4 mg/dL (8.7-10.4) L Total Protein 8.5 g/dL (5.7-8.2) H LFT Test 04/06/24 06:14 Alanine Aminotransferase (ALT) 998 U/L (7-40) H Alkaline Phosphatase 163 U/L (46-116) H Aspartate Amino Transferase (AST) 1350 U/L (13-40) H Total Bilirubin 9.0 mg/dL (0.2-1.0) H Urinalysis Test 04/03/24 10:45 Urine Color Dark-yellow (Yellow) Urine Clarity Turbid (Clear) H Urine pH 6.0 (5.0-9.0) Urine Specific [place] 1.041 (1.001-1.035) Urine Protein 1+ (Negative) H Urine Ketones Negative (Negative) Urine Blood Negative /uL (Negative) Urine Nitrite Negative (Negative) Urine Bilirubin 2+ (Negative) Urine Urobilinogen 6 mg/dL (Negative) Urine Leukocyte Esterase Negative /uL (Negative) Urine RBC 2 /hpf (0 - 3) Urine WBC 7 /hpf (0 - 3) Urine Squamous Epithelial Cells None seen /hpf (<5) Urine Bacteria None seen /hpf (None Seen) Urine Mucus Few (None Seen) Urine Glucose 4+ mg/dL (Normal) H Labs and/or images reviewed: Labs reviewed by me, Image(s) reviewed by me Assessment/Plan Assessment/Plan update - 04/06--patient is feeling improved, much better. Weakness is resolved, he was ambulating, he is tolerating p.o. the symptoms were likely 2/2 hyperglycemia. etoh neg on admit, MRCP neg. pending echo, hepatits panel and GI eval. 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 likely dc today versus tomorrow pending GI eval which likely just needs outpatient follow-up. needs to stop further etoh. no acute etoh intox, hence this is likely not acute etoh DETENTION (ie dont need prednisolone). #Transaminitis #ALP elevated #Hyperbilirubinemia #Hepatomegaly/hepatic steatosis #History of alcohol abuse - patient here for weakness. Has history of alcohol abuse drinking 12 pack beers daily. - patient has AST more than ALT, elevations in low 1000s, ALP elevated. - lipase elevated 57, Tylenol level low. - MELD-Na 27, , ammonia wnl, - blod etoh neg - low conern for acute etoh liver failure (no need prednisolone) - Dbili 8 (), LDH high- could be hemolysis (pending hapto) - CT abd without ascites , no Hepatosplenomegaly, no acute process - RUQ ultrasound shows hepatomegaly and hepatic steatosis. - uds neg - MRCP neg. - GI consult pend. likely chronic etoh cirrhosis - pending hepatitis panel, - need smear pend. - avoid Tylenol for pain control - low-salt diet - pending echo, hepatits panel and GI eval. #Protein gap - no hypercalcemia noted, renal function normal,-low concern for myeloma but if persists we will need workup for paraproteinemia diseases - monitor protein gap. protein gap remains elevated. will need workup (spep, light chains - f/u w Heme) #Hyponatremia #Hyperglycemia - gap is normal, hyponatremia likely from hyperglycemia.. DKA ruled out. - inpatient SSI ac/hs - start atleast 2 orals anti DM and Diet control #Intravascular volume depletion admit Specific gravity 1.041. She was likely suffering from osmotic diuresis. -s/p IV fluid hydration aggressive. Diet low-salt DVT prophylaxis Lovenox GI prophylaxis patient tolerating diet Med tele Plan discussed with: Patient My Orders Orders - KESHIA VAZQUEZ MD Procedure Category Date Status Time * Gi Dvh Manager Generation CONS 04/06/24 Transmitted 10:09 Date of Service: Apr 06, 2024 Billing Provider: KESHIA VAZQUEZ MD Common Visit Codes: [id number] INP/OBS CARE(HIGH) KESHIA VAZQUEZ MD Apr 06, 2024 10:17
[2024-04-06 10:30] LABS: Hepatitis A Ab IgM Negative
[2024-04-06 10:31] LABS: Hepatitis C Antibody Negative (Negative)
[2024-04-06 11:20] LABS: Hepatitis B Surface Antigen Positive (Negative)
[2024-04-06 11:21] LABS: Hepatitis B Core IgM Positive
[2024-04-06] MEDS ORDERED: DEXTROSE (50%) 50ML SYRG IV PRN (22:30)
[2024-04-07] VITALS (9 sets, daily range): BP systolic 117–135; BP diastolic 76–90; PULSE 61–98; RESP 18–20; TEMP 98–98.5; O2SAT 97–99
[2024-04-07] MEDS: InsuLIN REG 1unit/0.01ml Soln (100units/ml) SC SCH ×2 (06:22→21:43)
[2024-04-07] MEDS: ACCU-CHEK COMFORT CURVE STRIP VI SCH (06:23)
[2024-04-07 07:14] LABS: Basophils # (auto) 0 10 ^3/uL (0-0.2); Basophils % (auto) 0.5 % (0.0-2.0); Eosinophils # (auto) 0.1 10 ^3/uL (0-0.8); Eosinophils % (auto) 1.5 % (0.0-7.0); Hemoglobin 15.1 g/dL (13.5-17.5); Lymphocytes % (auto) 19.8 % (10.0-50.0); Mean Corpuscular Hemoglobin 35.1 pg (28.0-32.0); Mean Corpuscular Hgb Conc. 35.9 g/dL (32.0-36.0); Mean Corpuscular Volume 97.7 fL (80.0-100.0); Monocytes # (auto) 0.5 10 ^3/uL (0-1.3); Monocytes % (auto) 10.3 % (0.0-12.0); Neutrophils # (auto) 3.6 10 ^3/uL (1.6-8.6); Neutrophils % (auto) 67.9 % (37.0-80.0); Nucleated Red Blood Cells % 0.2 %; Platelet Count (auto) 209 10^3/uL (140-450); Red Blood Cells 4.29 10^6/uL (4.5-5.90); Red Cell Distribution Width 16.4 % (11.8-14.3); White Blood Cell 5.3 10^3/uL (4.4-10.8)
[2024-04-07 07:27] LABS: Alkaline Phosphatase 196 U/L (46-116); Anion Gap 5 (5-15); Blood Urea Nitrogen 6 mg/dL (9-23); Calcium 8.5 mg/dL (8.7-10.4); Carbon Dioxide 24 mmol/L (20-31); Chloride 102 mmol/L (98-107); Glucose 185 mg/dL (74-106); Potassium 3.8 mmol/L (3.5-5.1); Sodium 131 mmol/L (136-145)
[2024-04-07 07:28] LABS: Albumin 2.9 g/dL (3.2-4.8); Bilirubin, Total 9.3 mg/dL (0.2-1.0); Total Protein 9.3 g/dL (5.7-8.2)
[2024-04-07 07:50] LABS: BUN/Creatinine Ratio 8.2 (10.0-20.0)
[2024-04-07 08:15] LABS: Alanine Aminotransferase 1162 U/L (7-40)
--- NOTE | 2024-04-07 17:31 | DVHINCON2 ---
Date of service: Apr 07, 2024 Family History: Patient reports no known family medical history. Allergies: Coded Allergies: NO KNOWN ALLERGIES (Unverified , 04/03/24) Home Meds Active Scripts Glucose Blood (EASY TOUCH GLUCOSE TEST S) Strips Summer, 1 AC DAILY for 30 Days, #120 MISC 1 Refill Prov:CRISTIANA FISHER RESIDENT 04/08/24 Lancets (Freestyle Lancets) Lancets Mis, AC XX DAILY, #120 2 Refills measure blood glucose daily Prov:CRISTIANA FISHER RESIDENT 04/08/24 Blood Glucose Monitoring Suppl (EASY TOUCH GLUCOSE MONITO) Monitor Kit, AC XX DAILY, #1 measure blood glucose daily Prov:CRISTIANA FISHER RESIDENT 04/08/24 Empagliflozin (Jardiance) 10 Mg Tab, 10 MG PO DAILY for 30 Days, #30 TAB 2 Refills Prov:KESHIA VAZQUEZ MD 04/08/24 Metformin Hydrochloride (METFORMIN HCL ER) 500 Mg Tab, 1 TAB PO BID for 30 Days, #60 TAB 2 Refills Prov:KESHIA VAZQUEZ MD 04/08/24 Current Medications Current Medications Medications (Trade) Dose Ordered Sig/Zbigniew Route PRN Reason Start Time Stop Time Status Last Admin Diagnostic Test (Pha) (Accu-Chek Comfort Curve T) 1 strip ACHS 04/07/24 07:00 04/07/24 17:08 Insulin Human Regular (InsuLIN R) HS SC 04/07/24 22:00 Insulin Human Regular (InsuLIN R) AC SC 04/07/24 07:00 04/07/24 12:32 Dextrose 50 ml UD PRN IV Blood Sugar LESS THAN 60 04/06/24 22:30 Vital Signs Vital Signs Date Time Temp Pulse Resp B/P (MAP) Pulse Ox O2 Delivery O2 Flow Rate FiO2 04/07/24 17:02 98.3 66 18 117/76 (90) 98 98.3 04/07/24 08:30 Room Air* 0 21 Labs/Diagnostic Data Labs Test 04/07/24 17:08 04/07/24 05:44 04/06/24 06:14 04/05/24 06:12 Range/Units POC Glucose 160 H 70-106 mg/dl White Blood Count 5.3 4.4-10.8 10^3/uL Red Blood Count 4.29 L 4.5-5.90 10^6/uL Hemoglobin 15.1 13.5-17.5 g/dL Hematocrit 42.0 41.0-53.0 % Mean Corpuscular Volume 97.7 80.0-100.0 fL Mean Corpuscular Hemoglobin 35.1 H 28.0-32.0 pg Mean Corpuscular Hemoglobin Concent 35.9 32.0-36.0 g/dL Red Cell Distribution Width 16.4 H 11.8-14.3 % Platelet Count 209 140-450 10^3/uL Mean Platelet Volume 9.8 6.9-10.8 fL Neutrophils (%) (Auto) 67.9 37.0-80.0 % Lymphocytes (%) (Auto) 19.8 10.0-50.0 % Monocytes (%) (Auto) 10.3 0.0-12.0 % Eosinophils (%) (Auto) 1.5 0.0-7.0 % Basophils (%) (Auto) 0.5 0.0-2.0 % Neutrophils # (Auto) 3.6 1.6-8.6 10 ^3/uL Lymphocytes # (Auto) 1.0 0.4-5.4 10 ^3/uL Monocytes # (Auto) 0.5 0-1.3 10 ^3/uL Eosinophils # (Auto) 0.1 0-0.8 10 ^3/uL Basophils # (Auto) 0 0-0.2 10 ^3/uL Nucleated Red Blood Cells 0.2 % Sodium Level 131 L 136-145 mmol/L Potassium Level 3.8 3.5-5.1 mmol/L Chloride Level 102 98-107 mmol/L Carbon Dioxide Level 24 20-31 mmol/L Anion Gap 5 5-15 Blood Urea Nitrogen 6 L 9-23 mg/dL Creatinine 0.73 0.700-1.30 mg/dL Glomerular Filtration Rate Calc 109 >90 mL/min BUN/Creatinine Ratio 8.2 L 10.0-20.0 Serum Glucose 185 H 74-106 mg/dL Calcium Level 8.5 L 8.7-10.4 mg/dL Total Bilirubin 9.3 H 0.2-1.0 mg/dL Aspartate Amino Transferase (AST) 13-40 U/L Alanine Aminotransferase (ALT) 1162 H 7-40 U/L Alkaline Phosphatase 196 H 46-116 U/L Erythrocyte Sedimentation Rate 44 H 0-20 mm/hr C-Reactive Protein High Sensitivity 3.60 H <1.0 mg/dL Prothrombin Time 16.7 H 9.3-11.8 sec Prothrombin Time INR 1.63 H 0.9-1.15 Creatine Kinase 31 L 46-171 U/L Test 04/04/24 00:00 04/03/24 16:50 04/03/24 11:03 04/03/24 10:45 Range/Units Urine Opiates Screen Neg NEGATIVE Urine Fentanyl Screen Neg NEGATIVE Urine Barbiturates Screen Neg NEGATIVE Urine Phencyclidine Screen Neg NEGATIVE Urine Amphetamines Screen Neg NEGATIVE Urine Benzodiazepines Screen Neg NEGATIVE Urine Cocaine Screen Neg NEGATIVE Urine Cannabinoids Screen Neg NEGATIVE Haptoglobin 39 29-370 mg/dL Ammonia < 10 L 11-32 umol/L Plasma/Serum Blood Alcohol < 3.0 <10 mg/dL Hemoglobin A1c 11.0 H <5.7 % A1C Direct Bilirubin 8.4 H <0.3 mg/dL Gamma Glutamyl Transpeptidase 406 H <73 U/L Lactate Dehydrogenase 471 H 120-246 U/L Lipase 57 H 12-53 U/L Acetaminophen Level < 2.0 L 10.0-20.0 UG/ML Hepatitis A IgM Antibody Negative Hepatitis B Surface Antigen Positive H Negative Hepatitis B Core IgM Antibody Positive H Hepatitis C Antibody Negative Negative Urine Color Dark-yellow Yellow Urine Clarity Turbid H Clear Urine pH 6.0 5.0-9.0 Urine Specific [place] 1.041 H 1.001-1.035 Urine Protein 1+ H Negative Urine Ketones Negative Negative Urine Blood Negative Negative /uL Urine Nitrite Negative Negative Urine Bilirubin 2+ Negative Urine Urobilinogen 6 Negative mg/dL Urine Leukocyte Esterase Negative Negative /uL Urine RBC 2 0 - 3 /hpf Urine WBC 7 0 - 3 /hpf Urine Squamous Epithelial Cells None seen <5 /hpf Urine Bacteria None seen None Seen /hpf Urine Mucus Few None Seen Urine Glucose 4+ H Normal mg/dL Plan/Recommendation ASSESSMENT AND PLAN: ID Problem List: - Acute hepatitis (alcoholic versus hepatitis B) - Hyperbilirubinemia - Alcohol abuse - Past methamphetamine abuse (smoking) - Jaundice - Decompensated liver failure suspected - Pruritus Assessment This is a 54-year-old male with a past medical history of alcohol abuse and past methamphetamine use (smoking), who presents with generalized weakness, malaise, right-sided abdominal and flank pain. He reports pruritus and yellow, dry skin for the past 15 days. He is a heavy drinker, consuming a 12-pack of beer daily for the past 25 years. He denies nausea, vomiting, and blood in his stool. He denies new sexual partners and has no tattoos. He used methamphetamine in the past via smoking, not intravenous injection. He recently took two doses of 625 mg acetaminophen to help with sleep due to pain. On examination, the patient is jaundiced and mildly confused, with scleral icterus. He is easily short of breath. No asterixis observed. Laboratory findings reveal elevated liver enzymes: AST 1047 U/L, ALT 949 U/L, alkaline phosphatase 158 U/L. Total bilirubin was initially 12.3 mg/dL, now decreased to 9.2 mg/dL. Coagulation studies show PT 16.3 seconds, INR 1.59. Serologies are positive for hepatitis B surface antigen and hepatitis B core IgM antibody; hepatitis A and C are negative. Imaging studies: - Abdominal ultrasound: Contracted gallbladder with gallbladder wall thickening, nonspecific; negative significant Gibbs's sign; hepatic steatosis noted. - MRCP: Nondilated biliary ducts, evidence of common bile duct wall thickening, nonspecific trace pericholecystic fluid. - Abdominal pelvic CT: No pancreatitis; dilated intrahepatic ducts; no gross findings of varices (IV contrast recommended for accurate assessment); gallbladder contracted with mildly thickened wall and pericholecystic fluid. - Chest X-ray: No cardiopulmonary disease. The patient likely has acute hepatitis, possibly due to alcoholic hepatitis versus hepatitis B infection. Hyperbilirubinemia and decompensated liver failure are suspected due to elevated LFTs, jaundice, and coagulopathy. Plan: - Consult Gastroenterology for further evaluation of acute hepatitis and potential interventions. - Obtain hepatitis B DNA quantification to assess viral load. - Order hepatitis B e antigen (HBeAg) testing. - Test for hepatitis D antibody. - Recommend HIV testing. - Monitor liver function tests, coagulation profile, and bilirubin levels. - Provide supportive care for liver failure, including monitoring for signs of hepatic encephalopathy. - Encourage abstinence from alcohol; consider referral to substance abuse counseling services. - Arrange follow-up in Infectious Disease clinic in two weeks for evaluation and management of hepatitis B. - Review medication usage and caution against acetaminophen use due to hepatotoxicity. Isolation Precautions: Standard Assessment and plan was discussed with the patient as written above. Plan is subject to change pending incorporation of new incoming information/diagnostics. Updates may be added as addendum at the bottom (OR TOP) of this note. Thank you for interesting consult. ID will continue to follow. Please contact Infectious Disease for any questions or concerns. Patria Almaraz M.D. [facility]: ? History: The patient's chart and medications were reviewed in detail, and the patient was seen and examined. History obtained from: Patient Mr. Chaz Luna is a 54-year-old male with a past medical history of alcohol abuse and past methamphetamine use (smoking), who presents with generalized weakness, malaise, right-sided abdominal and flank pain. He reports that his skin has been itchy, yellow, and dry for the past 15 days. He is a heavy drinker, consuming a 12-pack of beer daily for the past 25 years. He denies nausea, vomiting, and blood in his stool. He has no new sexual partners and no tattoos. He used methamphetamine in the past by smoking, not int ravenous injection. He recently took two doses of 625 mg acetaminophen to help with sleep due to pain. Review of Systems: A complete 10-system review of systems was completed and negative except as noted in the HPI or here. ROS: - CONSTITUTIONAL: Reports generalized weakness and malaise. Denies fever and chills. - HEENT: Reports yellowing of the skin and scleral icterus. Denies changes in vision and hearing. - RESPIRATORY: Reports easy shortness of breath. Denies cough. - CV: Denies chest pain and palpitations. - GI: Reports right-sided abdominal and flank pain, pruritus, and yellow, dry skin. Denies nausea, vomiting, and blood in stool. - : Denies dysuria and urinary frequency. - MSK: Denies myalgia and joint pain. - SKIN: Reports jaundice, pruritus, and dry skin. Denies rash. - NEUROLOGICAL: Reports mild confusion. Denies headache and syncope. - PSYCHIATRIC: Denies recent changes in mood. Denies anxiety and depression. Past Medical History: Diagnosis - Alcohol abuse - Past methamphetamine abuse (smoking) Past Surgical History: History reviewed. No pertinent surgical history. Home Medications: Prior to Admission Medications - Acetaminophen 625 mg tablet: Took 2 tablets recently to help with sleep due to pain. Allergies: - No Known Drug Allergies Family History: Family history not provided. Social History: Socioeconomic History - Marital status: Not on file - Number of children: Not on file - Years of education: Not on file - Highest education level: Not on file Occupational History - Not on file Tobacco Use - Smoking status: Not on file Vaping Use - Vaping status: Not on file Substance and Sexual Activity - Alcohol use: Heavy use; consumes a 12-pack of beer daily for the past 25 years. - Drug use: Past methamphetamine use via smoking; denies intravenous drug use. - Sexual activity: Denies new sexual partners. Other Topics Concern - No tattoos. Social Determinants of Health: Not on file. Objective: Vital Signs on Arrival: - Temp: 97.3 F (36.3 C) - BP: 124/85 mmHg - Pulse: 109 bpm - Resp: 18 breaths per minute - SpO2: Not provided Most Recent Vital Signs: - Temp: Not provided - BP: Not provided - Pulse: Not provided - Resp: Not provided - SpO2: Not provided Admission Weight: - Not provided Physical Exam: General: Mildly confused, jaundiced male. Neck: Supple. No masses. HEENT: Scleral icterus present. PERRL. Normal lids and conjunctiva. Moist mucous membranes. Oropharynx without lesions, exudates, or excessive erythema. Normal appearance of the external aspects of the nose and ears. Heart: Regular rhythm, tachycardic at 109 bpm. No murmur. No lower extremity edema. Lungs: Normal respiratory effort. Clear to auscultation bilaterally. No wheezes. No crackles. Abdomen: Soft. Mild tenderness in the right upper quadrant and right flank. Non-distended. No masses or abdominal hernia. Msk: No digital cyanosis. Normal strength and tone in all 4 limbs. Skin: Jaundiced, dry skin. Pruritus noted. Neuro: Alert but mildly confused. No facial droop or slurred speech. Extra-ocular movements intact. Sensation intact to soft touch in all 4 limbs. Psych: Appropriate mood. Full affect. Oriented to person but mild confusion noted. Lines: - Active Lines not specified. Diagnostic Studies: Available diagnostic studies were reviewed personally. Significant relevant results and findings are outlined below or addressed in the Assessment and Plan above. Pertinent Labs: - Complete Blood Count: - WBC: 4.9 x10/?L - Hemoglobin: 15.7 g/dL - Platelets: 185 x10/?L - Basic Metabolic Panel: - Sodium: 133 mmol/L - BUN: 7 mg/dL - Creatinine: 0.58 mg/dL - Liver Function Tests: AST: 1047 U/L ALT: 949 U/L - Alkaline phosphatase: 158 U/L - Total bilirubin: Initially 12.3 mg/dL, decreased to 9.2 mg/dL - Coagulation Studies: - PT: 16.3 seconds INR: 1.59 - Serologies: - Hepatitis B surface antigen: Positive - Hepatitis B core IgM antibody: Positive - Hepatitis A antibody: Negative - Hepatitis C antibody: Negative Pertinent Imaging: - Abdominal Ultrasound: - Impression: - Contracted gallbladder with gallbladder wall thickening, nonspecific. - Negative significant Gibbs's sign. - Hepatic steatosis noted. - MRCP (Magnetic Resonance Cholangiopancreatography): - Impression: - Nondilated biliary ducts. - Evidence of common bile duct wall thickening. - Nonspecific trace pericholecystic fluid. - Abdominal Pelvic CT: - Impression: - No pancreatitis. - Dilated intrahepatic ducts. - No gross findings of varices; however, IV contrast recommended for accurate assessment. - Gallbladder contracted with mildly thickened wall and pericholecystic fluid. - Recommended checking abdominal ultrasound. - Chest X-ray: - Impression: - No cardiopulmonary disease. Plan discussed with: Patient PATRIA ALMARAZ MD Apr 07, 2024 17:31
--- NOTE | 2024-04-07 18:08 | DVHSR ---
APPROVED REPORT EXAM: Two-dimensional and M-mode echocardiogram with Doppler and color Doppler. Blood Pressure: 123/84 mmHg INDICATION Heart murmur RISK FACTORS Height: 5'8", Weight: 183 DIMENSIONS LVDd3.8 (3.8-5.7cm)LA (2D)3.7 (1.9-4.0cm)Aortic Root3.6 (2.0-3.7cm) LVDs2.6 (2.5-4.0cm)LA (MM) (1.9-4.0cm)Aortic Cusp Exc1.0 (1.5-2.0cm) EF (%) 60.0 (55-70%)Rt. Atrium3.5 (1.9-4.0cm)Asc. Aorta cm IVSd1.2 (0.7-1.1cm)RV (D)3.9 (1.8-2.4cm) PWd1.0 (0.7-1.1cm) Mitral Valve MitralMitral Stenosis E wave0.66m/sMV Mean GR.mmHg A wave0.79m/sMV Peak GR.mmHg E/A ratio0.82D MVAcm2 DECEL [id number] 1/2 [place] Aortic Valve Aortic ValveAortic Stenosis V10.94m/Mera Mean GR.14mmHg V22.51m/Mera Peak GR.25mmHg LVOT Diameter2.1 (1.8-2.4cm)Doppler AVA1.30cm2 Pulmonic Valve V21.16m/s Tricuspid Valve TR Velocity1.99m/s [id number] Other Information Conclusion Normal left ventricular size and dimension. Normal left ventricular systolic function estimated ejec tion fraction 55%. There is a grade 1 diastolic dysfunction. Normal right ventricular size and dimension. Normal right ventricular systolic function. Normal biatrial size and dimension. The aortic valve is mildly thickened there is mild aortic valve sclerosis. Normal mitral valve structure and function. Normal tricuspid valve structure and function. The pulmonary valve is grossly normal. No pericardial effusion.
--- NOTE | 2024-04-07 21:04 | DVHPN2 ---
Subjective update - 04/06--patient is feeling improved, much better. Weakness is resolved, he was ambulating, he is tolerating p.o. the symptoms were likely 2/2 hyperglycemia. etoh neg on admit, MRCP neg. pending echo, hepatits panel and GI eval. 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 likely dc today versus tomorrow pending GI eval which likely just needs outpatient follow-up. needs to stop further etoh. no acute etoh intox, hence this is likely not acute etoh SKILLED NURSING (ie dont need prednisolone). - 04/07 - patient is back to baseline. LFTs and labs remain abnormal and stable. hep panel with HBV infection. likely acute infection. consulting ID. Reviewed: Care Plan, H&P, Labs, Medications, Previous Orders, Radiology Changes from previous H/P or p: No Changes General: Per HPI Objective Vitals Vital Signs Date Time Temp Pulse Resp B/P (MAP) Pulse Ox O2 Delivery O2 Flow Rate FiO2 04/07/24 17:02 98.3 66 18 117/76 (90) 98 98.3 04/07/24 08:30 Room Air* 0 21 Intake/Output Intake and Output 04/07/24 07:00 Intake Total 3465 ml Balance 3465 ml Intake Oral 2290 ml IV Total 1175 ml # Voids 9 # Bowel Movements 2 Exam GEN: NAD. Jaundiced HEENT: NC/AT; ,moist mucous membranes, scleral icterus, sublingual icterus, jaundice skin CV: RRR, no m/r/g. LUNGS: Poor air movement in all lung hodges. ABD: Soft, NT/ND, NBS, no masses or organomegaly. No abdominal tenderness, Gibbs sign negative, abdomen nonacute EXT: skin Warm, well perfused. no rashes. Skin is jaundiced, no spider angiomas, NEURO: Ambulating with no limitations. No focal deficits. General Appearance: Alert, Oriented X3, Cooperative, No acute distress HEENT: Atraumatic Lungs: Clear to auscultation Cardiovascular: Regular rate, Other (Soft heart murmur in the left lower sternal border and apex) Abdomen: Normal bowel sounds, Soft, No tenderness Medications Current Medications Medications Dose Ordered Sig/Zbigniew Route Start Time Stop Time Status Last Admin Dose Admin Morphine Sulfate 2 mg Q4HPRN PRN IV 04/03/24 16:30 Sodium Chloride 1,000 ml @ 75 mls/hr [id number] IV 04/05/24 12:15 04/07/24 06:23 75 MLS/HR Diagnostic Test (Pha) 1 strip ACHS 04/07/24 07:00 04/07/24 17:08 1 STRIP Insulin Human Regular HS SC 04/07/24 22:00 Insulin Human Regular AC SC 04/07/24 07:00 04/07/24 17:37 2 UNITS Dextrose 50 ml UD PRN IV 04/06/24 22:30 Laboratory Results Laboratory Tests 04/07/24 05:44 Chemistry Test 04/07/24 05:44 Albumin Pending Albumin/Globulin Ratio Pending Calcium Level 8.5 mg/dL (8.7-10.4) L Total Protein Pending LFT Test 04/07/24 05:44 Alanine Aminotransferase (ALT) 1162 U/L (7-40) H Alkaline Phosphatase 196 U/L (46-116) H Aspartate Amino Transferase (AST) U/L (13-40) Total Bilirubin 9.3 mg/dL (0.2-1.0) H Urinalysis Test 04/03/24 10:45 Urine Color Dark-yellow (Yellow) Urine Clarity Turbid (Clear) H Urine pH 6.0 (5.0-9.0) Urine Specific [place] 1.041 (1.001-1.035) Urine Protein 1+ (Negative) H Urine Ketones Negative (Negative) Urine Blood Negative /uL (Negative) Urine Nitrite Negative (Negative) Urine Bilirubin 2+ (Negative) Urine Urobilinogen 6 mg/dL (Negative) Urine Leukocyte Esterase Negative /uL (Negative) Urine RBC 2 /hpf (0 - 3) Urine WBC 7 /hpf (0 - 3) Urine Squamous Epithelial Cells None seen /hpf (<5) Urine Bacteria None seen /hpf (None Seen) Urine Mucus Few (None Seen) Urine Glucose 4+ mg/dL (Normal) H Labs and/or images reviewed: Labs reviewed by me, Image(s) reviewed by me Assessment/Plan Assessment/Plan update - 04/07 - patient is back to baseline. LFTs and labs remain abnormal and stable. hep panel with HBV infection. likely acute infection. consulting ID. #Transaminitis #ALP elevated #Hyperbilirubinemia #Hepatomegaly/hepatic steatosis #History of alcohol abuse - patient here for weakness. Has history of alcohol abuse drinking 12 pack beers daily. - patient has AST more than ALT, elevations in low 1000s, ALP elevated. - lipase elevated 57, Tylenol level low. - MELD-Na 27, , ammonia wnl, - blod etoh neg - low conern for acute etoh liver failure (no need prednisolone) - Dbili 8 (of12), LDH high- could be hemolysis (pending hapto) - CT abd without ascites , no Hepatosplenomegaly, no acute process - RUQ ultrasound shows hepatomegaly and hepatic steatosis. - uds neg - MRCP neg. - echo EF 55% - normal findings. no Right heart failure. - viral Hep panel + fr HBV - GI consult pend - ID consult pending - plan to treat HBV outpatient. - pending hepatitis panel, - need smear pend. - avoid Tylenol for pain control - low-salt diet #Protein gap - no hypercalcemia noted, renal function normal,-low concern for myeloma but if persists we will need workup for paraproteinemia diseases - monitor protein gap. protein gap remains elevated. will need workup (spep, light chains - f/u w Heme) #uncontrolled DM with hyperglycemia #Hyponatremia #Hyperglycemia - gap is normal, hyponatremia likely from hyperglycemia.. DKA ruled out. - inpatient SSI ac/hs - start atleast 2 orals anti DM and Diet control #Intravascular volume depletion (Resolved) admit Specific gravity 1.041. She was likely suffering from osmotic diuresis. -s/p IV fluid hydration aggressive. Diet low-salt DVT prophylaxis Lovenox GI prophylaxis patient tolerating diet Med tele Plan discussed with: Patient My Orders Orders - KESHIA VAZQUEZ MD Procedure Category Date Status Time [place] Lambda Lite LAB 04/07/24 In Process Chain Free S 04:00 Protein LAB 04/07/24 In Process Electrophoresis Serum 04:00 Glucose Blood PHA 04/07/24 In Process (Accu-Chek Comfort 07:00 Insulin R (Human) PHA 04/07/24 In Process (Insulin R) 22:00 Insulin R (Human) PHA 04/07/24 In Process (Insulin R) 07:00 Dextrose 50% Syringe PHA 04/06/24 In Process 22:30 * Infectious [place]- CONS 04/07/24 Transmitted Patricia Almaraz 11:41 Date of Service: Apr 07, 2024 Billing Provider: KESHIA VAZQUEZ MD Common Visit Codes: [id number] INP/OBS CARE(HIGH) KESHIA VAZQUEZ MD Apr 07, 2024 21:04
[2024-04-08] VITALS (7 sets, daily range): BP systolic 111–125; BP diastolic 71–85; PULSE 72–84; RESP 16–20; TEMP 97.8–98.3; O2SAT 97–99
[2024-04-08 07:01] LABS: Anion Gap 4 (5-15); Carbon Dioxide 24 mmol/L (20-31); Chloride 105 mmol/L (98-107); Potassium 3.8 mmol/L (3.5-5.1)
[2024-04-08 07:09] LABS: BUN/Creatinine Ratio 12.1 (10.0-20.0)
[2024-04-08 07:10] LABS: Alanine Aminotransferase 949 U/L (7-40); Albumin 2.6 g/dL (3.2-4.8); Alkaline Phosphatase 158 U/L (46-116); Bilirubin, Total 9.2 mg/dL (0.2-1.0); Blood Urea Nitrogen 7 mg/dL (9-23); Calcium 8.5 mg/dL (8.7-10.4); Glucose 136 mg/dL (74-106); Sodium 133 mmol/L (136-145); Total Protein 8.6 g/dL (5.7-8.2)
[2024-04-08 07:12] LABS: Aspartate Aminotransferase 1047 U/L (13-40)
[2024-04-08] MEDS ORDERED: EMPA1TAB PO (10:08)
[2024-04-08] MEDS ORDERED: METF-489 PO (10:08)
--- NOTE | 2024-04-08 10:12 | DVHDS2 ---
Discharge Summary Date of Admission Apr 03, 2024 at 16:23 Date of Discharge: Apr 08, 2024 Labs/Diagnostic Data: Laboratory Results Test 04/08/24 07:31 04/08/24 06:13 04/07/24 19:30 04/07/24 05:44 POC Glucose 142 mg/dl (70-106) Sodium Level 133 mmol/L (136-145) Potassium Level 3.8 mmol/L (3.5-5.1) Chloride Level 105 mmol/L (98-107) Carbon Dioxide Level 24 mmol/L (20-31) Anion Gap 4 (5-15) Blood Urea Nitrogen 7 mg/dL (9-23) Creatinine 0.58 mg/dL (0.700-1.30) Glomerular Filtration Rate Calc 117 mL/min (>90) BUN/Creatinine Ratio 12.1 (10.0-20.0) Serum Glucose 136 mg/dL (74-106) Calcium Level 8.5 mg/dL (8.7-10.4) Total Bilirubin 9.2 mg/dL (0.2-1.0) Aspartate Amino Transferase (AST) 1047 U/L (13-40) Alanine Aminotransferase (ALT) 949 U/L (7-40) Alkaline Phosphatase 158 U/L (46-116) Total Protein 8.6 g/dL (5.7-8.2) Albumin 2.6 g/dL (3.2-4.8) Lactate Dehydrogenase 332 U/L (120-246) C-Reactive Protein High Sensitivity 3.33 mg/dL (<1.0) White Blood Count 5.3 10^3/uL (4.4-10.8) Red Blood Count 4.29 10^6/uL (4.5-5.90) Hemoglobin 15.1 g/dL (13.5-17.5) Hematocrit 42.0 % (41.0-53.0) Mean Corpuscular Volume 97.7 fL (80.0-100.0) Mean Corpuscular Hemoglobin 35.1 pg (28.0-32.0) Mean Corpuscular Hemoglobin Concent 35.9 g/dL (32.0-36.0) Red Cell Distribution Width 16.4 % (11.8-14.3) Platelet Count 209 10^3/uL (140-450) Mean Platelet Volume 9.8 fL (6.9-10.8) Neutrophils (%) (Auto) 67.9 % (37.0-80.0) Lymphocytes (%) (Auto) 19.8 % (10.0-50.0) Monocytes (%) (Auto) 10.3 % (0.0-12.0) Eosinophils (%) (Auto) 1.5 % (0.0-7.0) Basophils (%) (Auto) 0.5 % (0.0-2.0) Neutrophils # (Auto) 3.6 10 ^3/uL (1.6-8.6) Lymphocytes # (Auto) 1.0 10 ^3/uL (0.4-5.4) Monocytes # (Auto) 0.5 10 ^3/uL (0-1.3) Eosinophils # (Auto) 0.1 10 ^3/uL (0-0.8) Basophils # (Auto) 0 10 ^3/uL (0-0.2) Nucleated Red Blood Cells 0.2 % Test 04/06/24 06:14 04/05/24 06:12 04/04/24 00:00 04/03/24 16:50 Erythrocyte Sedimentation Rate 44 mm/hr (0-20) Prothrombin Time 16.7 sec (9.3-11.8) Prothrombin Time INR 1.63 (0.9-1.15) Creatine Kinase 31 U/L (46-171) Urine Opiates Screen Neg (NEGATIVE) Urine Fentanyl Screen Neg (NEGATIVE) Urine Barbiturates Screen Neg (NEGATIVE) Urine Phencyclidine Screen Neg (NEGATIVE) Urine Amphetamines Screen Neg (NEGATIVE) Urine Benzodiazepines Screen Neg (NEGATIVE) Urine Cocaine Screen Neg (NEGATIVE) Urine Cannabinoids Screen Neg (NEGATIVE) Haptoglobin 39 mg/dL (29-370) Ammonia < 10 umol/L (11-32) Plasma/Serum Blood Alcohol < 3.0 mg/dL (<10) Test 04/03/24 11:03 04/03/24 10:45 Hemoglobin A1c 11.0 % A1C (<5.7) Direct Bilirubin 8.4 mg/dL (<0.3) Gamma Glutamyl Transpeptidase 406 U/L (<73) Lipase 57 U/L (12-53) Acetaminophen Level < 2.0 UG/ML (10.0-20.0) Hepatitis A IgM Antibody Negative Hepatitis B Surface Antigen Positive (Negative) Hepatitis B Core IgM Antibody Positive Hepatitis C Antibody Negative (Negative) Urine Color Dark-yellow (Yellow) Urine Clarity Turbid (Clear) Urine pH 6.0 (5.0-9.0) Urine Specific [place] 1.041 (1.001-1.035) Urine Protein 1+ (Negative) Urine Ketones Negative (Negative) Urine Blood Negative /uL (Negative) Urine Nitrite Negative (Negative) Urine Bilirubin 2+ (Negative) Urine Urobilinogen 6 mg/dL (Negative) Urine Leukocyte Esterase Negative /uL (Negative) Urine RBC 2 /hpf (0 - 3) Urine WBC 7 /hpf (0 - 3) Urine Squamous Epithelial Cells None seen /hpf (<5) Urine Bacteria None seen /hpf (None Seen) Urine Mucus Few (None Seen) Urine Glucose 4+ mg/dL (Normal) Other Laboratory Tests 04/08/24 06:13 04/07/24 05:44 Brief Hx & Hospital Course: 54 y.o male with PMH of ETOH abuse, meth abuse, presents to the ED for a chief complaint of generalized malaise. Patient endorsed right sided abdominal/flank pain to ED physician. He endorses scleral icterus and dry skin that started 15 days ago. Patient reports heavy drinking for the past 25 years, last drink was one week ago, he drinks 12 pack beer daily and has no history of alcohol withdrawals. Patient took 625 Tylenol for 2 days few days ago as a sleep aid but had no relief. Patient here for weakness. Has history of alcohol abuse drinking 12 pack beers daily. patient has AST more than ALT, elevations in low 1000s, ALP elevated. lipase elevated 57, Tylenol level low. MELD-Na 27, , ammonia wnl. blod etoh neg with low conern for acute etoh liver failure. Dbili 8 (of Tbili12), LDH high, but hapto wnl, ruling out hemolysis. CT abd without ascites , no Hepatosplenomegaly, no acute process. RUQ ultrasound shows hepatomegaly and hepatic steatosis. uds neg. MRCP neg.. echo EF 55% - normal findings. no Right heart failure. viral Hep panel + HBV. Patient is noted to have hyperglycemia without DKA. Patient was given aggressive IV fluid hydration, insulin SSI a.c. HS to control hyperglycemia. After controlling hyperglycemia, patient symptoms are resolved and he feels vastly improved, and back to baseline. Workup concerning for HBV acute infection, ID consulted and has ordered PCR and further labs which will be followed outpatient in ID clinic to start outpatient HBV treatment. Patient vitals are stable, tolerating p.o., ambulating,. Patient is stable to discharge with plan below Diagnosis: DM with hyperglycemia, transaminitis due to etoh abuse and HBV infection; acute hepatitis infection; ALP elevated; hyperbilirubinemia; protein gap; uncontrolled diabetes with hyperglycemia; DKA ruled out; hyponatremia due to hyperglycemia; intravascular volume depletion; hepatomegaly; hepatic steatosis; history of alcohol abuse; Discharge plan: - start metformin 2x/day, jardiance 1x/day - low sugar diet (stick to chicken salad etc, avoid breads/rice/juices) - ok to drink diet/zero sugar soda - go to PCP after pcp setup via social workers help. PVP to fllow MM labs and if + pt will need referral to hematology outpatient. - go to DC clinic follow-up for BG check (bring BG log) and BMP and BP check - avoid /stop etoh use (avoid tylenol too, use ibuprofen sparingly for pain if needed) - go to ID doctor appointment (Dr Almaraz) to get treated for HBV infection Visitation and planning required 35 minutes Condition at Discharge: Fair Final Diagnosis/Problems List DM with hyperglycemia, transaminitis due to etoh abuse and HBV infection Discharge Disposition: Home Discharge Instruct/Medications Diet: Consistent carbohydrate Activity: No Restrictions, As Tolerated Follow Up/Referral: pcp, dc clinic, ID Medications: as below Discharge Statement: "Patient was advised to return to the ER or call 911 if any headaches, dizziness, shortness of breath, chest pain, abdominal pain, bleeding, fevers, or worsening of medical condition. Patient was counseled about treatment plan, medications, possible side effects, patientverbalized understanding. All questions were answered to the best of my ability. This discharge took greater then 30 minutes in planning, reviewing documentation, counseling the patient, and discussing with other team members." ASSESSMENT ASSESSMENT Assessment DM with hyperglycemia, transaminitis due to etoh abuse and HBV infection Date of Service: Apr 08, 2024 Billing Provider: KESHIA VAZQUEZ MD Common Visit Codes: 11396-KCT/OBS DISCH DAY >30min KESHIA VAZQUEZ MD Apr 08, 2024 10:12
[2024-04-08 12:06] LABS: Kappa Lite Chain Free Serum 132.6 mg/L (3.3-19.4)
[2024-04-08 13:07] LABS: Albumin 2.6 g/dL (2.9-4.4); Alpha-1-Globulin 0.3 g/dL (0.0-0.4); Alpha-2-Globulin 0.5 g/dL (0.4-1.0); Gamma Globulin 4.4 g/dL (0.4-1.8); Globulin Total 6.3 g/dL (2.2-3.9); Protein Total Serum 8.9 g/dL (6.0-8.5)
[2024-04-08] MEDS ORDERED: LANC-347 XX (14:15)
[2024-04-08] MEDS ORDERED: BLOO-169 XX (14:15)
[2024-04-08] MEDS ORDERED: GLUC-224 VI (14:15)
--- NOTE | 2024-04-08 17:12 | DVHINCON2 ---
Date of service: Apr 07, 2024 History of Present Illness 54 y/o M pt with PMH of alcohol abuse here with elevated liver enzymes. He c/o fatigue and abd pain. No clear hx of HBV exposure. Denies IV drug abuse/blood transfusion/unprotected sexual intercourse. No GIB/ascites. Mentation normal. Past Medical History Reviewed Past Surgical History Reviewed Family History: Patient reports no known family medical history. Allergies: Coded Allergies: NO KNOWN ALLERGIES (Unverified , 04/03/24) Home Meds Active Scripts Glucose Blood (EASY TOUCH GLUCOSE TEST S) Strips Summer, 1 AC DAILY for 30 Days, #120 MISC 1 Refill Prov:CRISTIANA FISHER RESIDENT 04/08/24 Lancets (Freestyle Lancets) Lancets Mis, AC XX DAILY, #120 2 Refills measure blood glucose daily Prov:CRISTIANA FISHER RESIDENT 04/08/24 Blood Glucose Monitoring Suppl (EASY TOUCH GLUCOSE MONITO) Monitor Kit, AC XX DAILY, #1 measure blood glucose daily Prov:CRISTIANA FISHER RESIDENT 04/08/24 Empagliflozin (Jardiance) 10 Mg Tab, 10 MG PO DAILY for 30 Days, #30 TAB 2 Refills Prov:KESHIA VAZQUEZ MD 04/08/24 Metformin Hydrochloride (METFORMIN HCL ER) 500 Mg Tab, 1 TAB PO BID for 30 Days, #60 TAB 2 Refills Prov:KESHIA VAZQUEZ MD 04/08/24 Current Medications Current Medications Medications (Trade) Dose Ordered Sig/Zbigniew Route PRN Reason Start Time Stop Time Status Last Admin Insulin Human Regular (InsuLIN R) HS SC 04/07/24 22:00 04/07/24 21:43 Review of Systems 14 point ROS neg except mentioned above Vital Signs Vital Signs Date Time Temp Pulse Resp B/P (MAP) Pulse Ox O2 Delivery O2 Flow Rate FiO2 04/08/24 13:00 98.1 72 16 111/85 (94) 98 98.1 04/08/24 07:40 Room Air* 0 21 Physical Exam GE: in no distress CVS: S1S2+ Lungs clear Abdomen: soft, nondistended, RUQ tender, BS+ Labs/Diagnostic Data Labs Test 04/08/24 12:23 04/08/24 06:13 04/07/24 19:30 04/07/24 05:44 Range/Units POC Glucose 232 H 70-106 mg/dl Sodium Level 133 L 136-145 mmol/L Potassium Level 3.8 3.5-5.1 mmol/L Chloride Level 105 98-107 mmol/L Carbon Dioxide Level 24 20-31 mmol/L Anion Gap 4 L 5-15 Blood Urea Nitrogen 7 L 9-23 mg/dL Creatinine 0.58 L 0.700-1.30 mg/dL Glomerular Filtration Rate Calc 117 >90 mL/min BUN/Creatinine Ratio 12.1 10.0-20.0 Serum Glucose 136 H 74-106 mg/dL Calcium Level 8.5 L 8.7-10.4 mg/dL Total Bilirubin 9.2 H 0.2-1.0 mg/dL Aspartate Amino Transferase (AST) 1047 H 13-40 U/L Alanine Aminotransferase (ALT) 949 H 7-40 U/L Alkaline Phosphatase 158 H 46-116 U/L Total Protein 8.6 H 5.7-8.2 g/dL Albumin 2.6 L 3.2-4.8 g/dL Lactate Dehydrogenase 332 H 120-246 U/L C-Reactive Protein High Sensitivity 3.33 H <1.0 mg/dL White Blood Count 5.3 4.4-10.8 10^3/uL Red Blood Count 4.29 L 4.5-5.90 10^6/uL Hemoglobin 15.1 13.5-17.5 g/dL Hematocrit 42.0 41.0-53.0 % Mean Corpuscular Volume 97.7 80.0-100.0 fL Mean Corpuscular Hemoglobin 35.1 H 28.0-32.0 pg Mean Corpuscular Hemoglobin Concent 35.9 32.0-36.0 g/dL Red Cell Distribution Width 16.4 H 11.8-14.3 % Platelet Count 209 140-450 10^3/uL Mean Platelet Volume 9.8 6.9-10.8 fL Neutrophils (%) (Auto) 67.9 37.0-80.0 % Lymphocytes (%) (Auto) 19.8 10.0-50.0 % Monocytes (%) (Auto) 10.3 0.0-12.0 % Eosinophils (%) (Auto) 1.5 0.0-7.0 % Basophils (%) (Auto) 0.5 0.0-2.0 % Neutrophils # (Auto) 3.6 1.6-8.6 10 ^3/uL Lymphocytes # (Auto) 1.0 0.4-5.4 10 ^3/uL Monocytes # (Auto) 0.5 0-1.3 10 ^3/uL Eosinophils # (Auto) 0.1 0-0.8 10 ^3/uL Basophils # (Auto) 0 0-0.2 10 ^3/uL Nucleated Red Blood Cells 0.2 % Globulin (PEP) 6.3 H 2.2-3.9 g/dL Albumin/Globulin Ratio 0.4 L 0.7-1.7 Sotwv-5-Vzhscnruc 0.3 0.0-0.4 g/dL Aubzj-0-Mqvjlnkkn 0.5 0.4-1.0 g/dL Beta Globulins 1.1 0.7-1.3 g/dL Gamma Globulins 4.4 H 0.4-1.8 g/dL Protein Electrophoresis M-Jose Not observed Not Observed g/dL Protein Electrophoresis Note Comment . Free [place] Light Chains, Quant 132.6 H 3.3-19.4 mg/L Free [place]/Lambda Light Chain Ratio 1.76 H 0.26-1.65 Test 04/06/24 06:14 04/05/24 06:12 04/04/24 00:00 04/03/24 16:50 Range/Units Erythrocyte Sedimentation Rate 44 H 0-20 mm/hr Prothrombin Time 16.7 H 9.3-11.8 sec Prothrombin Time INR 1.63 H 0.9-1.15 Creatine Kinase 31 L 46-171 U/L Urine Opiates Screen Neg NEGATIVE Urine Fentanyl Screen Neg NEGATIVE Urine Barbiturates Screen Neg NEGATIVE Urine Phencyclidine Screen Neg NEGATIVE Urine Amphetamines Screen Neg NEGATIVE Urine Benzodiazepines Screen Neg NEGATIVE Urine Cocaine Screen Neg NEGATIVE Urine Cannabinoids Screen Neg NEGATIVE Haptoglobin 39 29-370 mg/dL Ammonia < 10 L 11-32 umol/L Plasma/Serum Blood Alcohol < 3.0 <10 mg/dL Test 04/03/24 11:03 04/03/24 10:45 Range/Units Hemoglobin A1c 11.0 H <5.7 % A1C Direct Bilirubin 8.4 H <0.3 mg/dL Gamma Glutamyl Transpeptidase 406 H <73 U/L Lipase 57 H 12-53 U/L Acetaminophen Level < 2.0 L 10.0-20.0 UG/ML Hepatitis A IgM Antibody Negative Hepatitis B Surface Antigen Positive H Negative Hepatitis B Core IgM Antibody Positive H Hepatitis C Antibody Negative Negative Urine Color Dark-yellow Yellow Urine Clarity Turbid H Clear Urine pH 6.0 5.0-9.0 Urine Specific [place] 1.041 H 1.001-1.035 Urine Protein 1+ H Negative Urine Ketones Negative Negative Urine Blood Negative Negative /uL Urine Nitrite Negative Negative Urine Bilirubin 2+ Negative Urine Urobilinogen 6 Negative mg/dL Urine Leukocyte Esterase Negative Negative /uL Urine RBC 2 0 - 3 /hpf Urine WBC 7 0 - 3 /hpf Urine Squamous Epithelial Cells None seen <5 /hpf Urine Bacteria None seen None Seen /hpf Urine Mucus Few None Seen Urine Glucose 4+ H Normal mg/dL Assessment #Elevated liver enzymes #RUQ pain, fatigue #HBV infection #Alcohol abuse -Tylenol level normal. No recent abx. Likely 2/2 rhabdomyolysis vs acute Hepatitis B. -INR and mentation normal. Close monitor -Check HBV VL, LDH and CRP, Hbs Ab. No Hb e Ag and e Ab available to order -Strict alcohol abstinence rec, no clinical evidence of cirrhosis -ID on board. -Care plan discussed with pt in detail. -Will sign out to Dr Dunne Thank you for the consult Plan discussed with: Patient CL OVGEL MD Apr 08, 2024 17:12
--- NOTE | 2024-04-08 22:13 | DVHPN2 ---
Consult Progress Note Date Seen: Apr 08, 2024 Subjective Patient reports: Feels better (fully awake and alert , jaundance is decreaasing no bloody bowel movements ) Objective vital signs Vital Sign Date Time Temp Pulse Resp B/P (MAP) Pulse Ox O2 Delivery O2 Flow Rate FiO2 04/08/24 13:00 98.1 72 16 111/85 (94) 98 98.1 04/08/24 07:40 Room Air* 0 21 Total Intake and Output 04/07/24 04/07/24 04/08/24 15:00 23:00 07:00 Intake Total 554 ml 864 ml Balance 554 ml 864 ml laboratory and microbiology Laboratory Tests 04/08/24 06:13 04/07/24 05:44 Test 04/08/24 06:13 Range/Units Serum Glucose 136 H 74-106 mg/dL Problem List/Assessment/Plan Problems(with codes): (1) Alcoholism (2) Acute hepatitis Problem List/Assessment/Plan ID Problem List: - Acute hepatitis (alcoholic versus hepatitis B) - Hyperbilirubinemia - Alcohol abuse - Past methamphetamine abuse (smoking) - Jaundice - Decompensated liver failure suspected - Pruritus Assessment This is a 54-year-old male with a past medical history of alcohol abuse and past methamphetamine use (smoking), who presents with generalized weakness, malaise, right-sided abdominal and flank pain. He reports pruritus and yellow, dry skin for the past 15 days. He is a heavy drinker, consuming a 12-pack of beer daily for the past 25 years. He denies nausea, vomiting, and blood in his stool. He denies new sexual partners and has no tattoos. He used methamphetamine in the past via smoking, not intravenous injection. He recently took two doses of 625 mg acetaminophen to help with sleep due to pain. On examination, the patient is jaundiced and mildly confused, with scleral icterus. He is easily short of breath. No asterixis observed. Laboratory findings reveal elevated liver enzymes: AST 1047 U/L, ALT 949 U/L, alkaline phosphatase 158 U/L. Total bilirubin was initially 12.3 mg/dL, now decreased to 9.2 mg/dL. Coagulation studies show PT 16.3 seconds, INR 1.59. Serologies are positive for hepatitis B surface antigen and hepatitis B core IgM antibody; hepatitis A and C are negative. Imaging studies: - Abdominal ultrasound: Contracted gallbladder with gallbladder wall thickening, nonspecific; negative significant Gibbs's sign; hepatic steatosis noted. - MRCP: Nondilated biliary ducts, evidence of common bile duct wall thickening, nonspecific trace pericholecystic fluid. - Abdominal pelvic CT: No pancreatitis; dilated intrahepatic ducts; no gross findings of varices (IV contrast recommended for accurate assessment); gallbladder contracted with mildly thickened wall and pericholecystic fluid. - Chest X-ray: No cardiopulmonary disease. The patient likely has acute hepatitis, possibly due to alcoholic hepatitis versus hepatitis B infection. Hyperbilirubinemia and decompensated liver failure are suspected due to elevated LFTs, jaundice, and coagulopathy. 04/08: patient liver enzymes are not getting worse however are still persistently elevated Plan: - Consult Gastroenterology for further evaluation of acute hepatitis and potential interventions. - Obtain hepatitis B DNA quantification to assess viral load. - Order hepatitis B e antigen (HBeAg) testing. - Test for hepatitis D antibody. - Recommend HIV testing. - Monitor liver function tests, coagulation profile, and bilirubin levels. - Provide supportive care for liver failure, including monitoring for signs of hepatic encephalopathy. - Encourage abstinence from alcohol; consider referral to substance abuse counseling services. - Arrange follow-up in Infectious Disease clinic in two weeks for evaluation and management of hepatitis B. - Review medication usage and caution against acetaminophen use due to hepatotoxicity. Plan discussed with: Patient, Other PATRIA DOMINGUEZ MD Apr 08, 2024 22:13
== END 2024-04-08 15:08 | disposition home or self-care (01) | DRG 280 ==
LOC: ER 10:32 → TELE 16:23 → TELE-CENTR 22:24
PROVIDERS: ADMIT Student in an Organized Health Care Education/Training Program; ATTEND Student in an Organized Health Care Education/Training Program
DX: K70.10 Alcoholic hepatitis without ascites (principal); D68.9 Coagulation defect, unspecified; B16.9 Acute hepatitis B without delta-agent and without hepatic coma; E87.1 Hypo-osmolality and hyponatremia; E86.9 Volume depletion, unspecified; E11.65 Type 2 diabetes mellitus with hyperglycemia; K76.0 Fatty (change of) liver, not elsewhere classified; E78.5 Hyperlipidemia, unspecified; F15.10 Other stimulant abuse, uncomplicated; R01.1 Cardiac murmur, unspecified; L29.9 Pruritus, unspecified; R74.01 Elevation of levels of liver transaminase levels; Z79.4 Long term (current) use of insulin; Z79.899 Other long term (current) drug therapy; Y90.9 Presence of alcohol in blood, level not specified; F10.10 Alcohol abuse, uncomplicated
CPT/HCPCS: 36415; 74181; 80053; 80307; 82550; 82962; 83521; 83615; 84155; 84165; 85025; 85610; 85652; 86141; 87517; 93306; 99291; G0378; J1815